=== PATIENT | male | born 1975 | race Caucasian/White ===

== ENCOUNTER 2018-02-21 15:00 | Inpatient (IN) | payer BC ==
[2018-02-21] MEDS ORDERED: methylPREDNISolone Sodium Succinate 125 MG/2 ML SDV IVPUSH ONE (15:18)
[2018-02-21] MEDS: Albuterol/Ipratropium 3.0-0.5 MG/3 ML Neb Soln NEB SCH ×3 (15:28→23:02)
[2018-02-21] MEDS: Lactated Ringers 2,000 ML IV ONE ×2 (15:28→18:22)
[2018-02-21] MEDS: Sodium Chloride 0.9% 10 ML Syringe FLUSH PRN ×2 (15:31→16:18)
[2018-02-21] MEDS ORDERED: Azithromycin 500 MG in Sodium Chloride 0.9% 250 ML IV SCH (16:00)
[2018-02-21 16:08] LABS: CHLORIDE,CL 99 mmol/L (98-107); SODIUM,NA 137 mmol/L (136-145)
[2018-02-21] MEDS: Azithromycin 500 MG in Sodium Chloride 0.9% 250 ML IV SCH (16:15)
[2018-02-21] MEDS: Nicotine 21 MG/24 Hr Patch TRDERM SCH (16:17)
[2018-02-21] MEDS: cefTRIAXone 1 GM Vial IVPUSH SCH (16:18)
[2018-02-21] MEDS: Oseltamivir 75 MG Cap PO SCH (18:05)
[2018-02-21] MEDS ORDERED: Acetaminophen 325 MG Tab PO PRN (19:30)
[2018-02-21] MEDS ORDERED: Ondansetron 4 MG Tab.DIS PO PRN (19:30)
[2018-02-21] MEDS: Lactated Ringers 1,000 ML IV SCH (19:40)
--- NOTE | 2018-02-21 19:46 | PCM.HP ---
H&P History of Present Illness - General Date of Service: 02/21/18 Admit Problem/Dx: Admission Diagnosis/Problem Admission Diagnosis/Problem Sepsis secondary to Community Acquired Pneumonia Influenza B Hypoxia Weakness Source of Information: Patient, Family, Old Records, RN, RN Notes Reviewed History Limitations: Reports: No Limitations - History of Present Illness Initial Comments - Free Text/Narative: This patient was seen and examined by me as an [facility] provider The patient was seen by me in clinic at [facility] earlier today. The patient had presented to the clinic with a one-day history of shortness of breath, weakness, and feeling chilled. In the clinic, the patient had an oxygen saturation of 82% and the chest x-ray showed left lower lobe infiltrate. The patient was therefore directly admitted to the acute care floor at [facility] for further evaluation and treatment. The patient states that his symptoms began sometime yesterday. The patient initially thought he just had a cold and thought he would wait it out. However, today his symptoms became much worse, therefore he felt he needed treatment. The patient denies any chest pain. The patient states he feels short of breath just walking short distances. The patient denies any abdominal pain. The patient has not had any nausea vomiting or diarrhea. The patient denies any focal neurological deficits. The patient states that he has a productive cough reducing a green/yellow appearing purulent sputum. The patient continues to smoke cigarettes on a daily basis. The patient has had some mild dizziness with position changes. The patient states that he has not been drinking very much fluids. Symptom Onset Date: 02/20/18 Chest Pain Score (Numeric/FACES): 6 - Related Data Allergies/Adverse Reactions: Allergies Allergy/AdvReac Type Severity Reaction Status Date / Time No Known Allergies Allergy Verified 02/21/18 15:36 Home Medications: Home Meds . 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 Respiratory History: Reports: Pneumonia, Recurrent, SOB Gastrointestinal History: Reports: Other (See Below) Other Gastrointestinal History: Hernia - Infectious Disease History Infectious Disease History: Reports: Chicken Pox - Past Surgical History GI Surgical History: Reports: Hernia, Abdominal Social & Family History - Family History Family Medical History: Noncontributory - Tobacco Use Smoking Status *Q: Current Every Day Smoker Years of Tobacco use: 25 Packs/Tins Daily: 1 Second Hand Smoke Exposure: Yes - Caffeine Use Caffeine Use: Reports: Coffee, Soda - Recreational Drug Use Recreational Drug Use: No - Living Situation & Occupation Living situation: Reports: , with Spouse Occupation: Employed H&P Review of Systems - Review of Systems: Review Of Systems: See Below General: Reports: Chills, Weakness, Fatigue. Denies: Fever HEENT: Reports: No Symptoms Pulmonary: Reports: Shortness of Breath, Cough, Sputum. Denies: Wheezing Cardiovascular: Denies: Chest Pain, Palpitations Gastrointestinal: Denies: Abdominal Pain, Nausea, Vomiting Skin: Reports: No Symptoms Neurological: Reports: No Symptoms. Denies: Dizziness, Headache Exam - Exam Exam: See Below - Vital Signs Vital Signs: Last Vital Signs Temp 37.0 C 02/21/18 18:09 Pulse 108 H 02/21/18 18:09 Resp 16 02/21/18 18:09 BP 116/65 02/21/18 18:09 Pulse Ox 91 L 02/21/18 18:23 Weight: 132.517 kg - Exam Quality Assessment: Supplemental Oxygen, DVT Prophylaxis General: Alert, Oriented, Cooperative, Mild Distress HEENT: Conjunctiva Clear, TMs Clear, Other (dry mucous membranes) Lungs: Decreased Breath Sounds, Crackles, Rhonchi Cardiovascular: Regular Rate, Regular Rhythm GI/Abdominal Exam: Soft, Non-Tender, Abnormal Bowel Sounds (Hypoactive) Extremities: Normal Inspection Peripheral Pulses: 2+: Radial (L), Radial (R) Skin: Dry, Intact, Cool Neuro Extensive - Mental Status: Alert, Oriented x3 - Patient Data Lab Results Last 24 hrs: Laboratory Results - last 24 hr 02/21/18 02/21/18 02/21/18 Range/Units 15:30 15:30 15:30 WBC 11.5 H (4.0-10.0) x10^3/uL RBC 5.00 (4.5-6.0) x10^6/uL Hgb 16.8 (14.0-18.0) g/dL Hct 50.8 (40.0-52.0) % MCV 101.6 H (78.0-93.0) fL MCH 33.6 H (26.0-32.0) pg MCHC 33.1 (32.0-36.0) g/dL RDW Coeff of Jamie 14.3 (10.0-15.0) % Plt Count 140 (130-400) x10^3/uL Neut % (Auto) 81.1 H (50.0-80.0) % Lymph % (Auto) 6.8 L (25.0-50.0) % [place] % (Auto) 11.8 H (2.0-11.0) % Eos % (Auto) 0.1 (0.0-4.0) % Baso % (Auto) 0.2 (0.2-1.2) % Sodium 137 (136-145) mmol/L Potassium 3.8 (3.5-5.1) mmol/L Chloride 99 (98-107) mmol/L Carbon Dioxide 30 (21-32) mmol/L BUN 10 (7-18) mg/dL Creatinine 1.3 (0.70-1.30) mg/dL Est Cr Clr Drug Dosing 84.51 mL/min Estimated GFR (MDRD) > 60 Glucose 126 H (74-106) mg/dL Lactic Acid 1.5 (0.4-2.0) mmol/L Calcium 8.4 L (8.5-10.1) mg/dL Corrected Calcium 8.88 (8.5-10.1) mg/dL Total Bilirubin 0.8 (0.2-1.0) mg/dL AST 17 (15-37) U/L ALT 31 (16-63) U/L Alkaline Phosphatase 110 (46-116) U/L C-Reactive Protein 10.4 H (<=0.9) mg/dL Total Protein 7.3 (6.4-8.2) g/dL Albumin 3.4 (3.4-5.0) g/dL Globulin 3.9 Albumin/Globulin Ratio 0.87 Result Diagrams: 02/21/18 15:30 02/21/18 15:30 Roberto Results Last 24 hrs: Microbiology 02/21/18 16:29 Influenza Type A Antigen Screen - Final Nasopharyngeal Swab NEGATIVE INFLUENZA A VIRUS AG Influenza Type B Antigen Screen - Final Positive Influenza B Ag *Q Meaningful Use (ADM) - VTE *Q VTE Criteria *Q: Patient is not at risk for falls - Problem List (1) Sepsis due to pneumonia SNOMED Code(s): 85359097 ICD Code: J18.9 - PNEUMONIA, UNSPECIFIED ORGANISM; A41.9 - SEPSIS, UNSPECIFIED ORGANISM Status: Acute Priority: Medium Current Visit: Yes Onset Date: ~02/20/18 (2) Influenza B SNOMED Code(s): 35378500 ICD Code: J10.1 - FLU DUE TO OTH IDENT INFLUENZA VIRUS W OTH RESP MANIFEST Status: Acute Priority: Medium Current Visit: Yes (3) Hypoxia SNOMED Code(s): 581947095 ICD Code: R09.02 - HYPOXEMIA Status: Acute Priority: High Current Visit : Yes (4) Weakness SNOMED Code(s): 90418475 ICD Code: R53.1 - WEAKNESS Status: Acute Priority: Medium Current Visit : Yes Problem List Initiated/Reviewed/Updated: Yes Orders Last 24hrs: Active Orders 24 hr Category Date Time Status Patient Status [ADT] Routine ADT 02/21/18 19:30 Active Height and Weight [RC] UPON Care 02/21/18 19:30 Active Intake and Output [RC] QSHIFT Care 02/21/18 19:31 Active May Shower [RC] ASDIRECTED Care 02/21/18 19:30 Active Oxygen Therapy [RC] 08,20 Care 02/21/18 15:42 Active Pneumonia Education [RC] .PRN Care 02/21/18 15:42 Active RT Aerosol Therapy [RC] 03,07,11,15,19,23 Care 02/21/18 15:16 Active RT Incentive Spirometry [RC] Q2HWA Care 02/21/18 15:42 Active Smoking Cessation Education [RC] .PRN Care 02/21/18 15:45 Active Turn, Cough, Deep Breathe [RC] Q2HWA Care 02/21/18 15:44 Active Up With Assistance [RC] ASDIRECTED Care 02/21/18 19:30 Active VTE/DVT Education [RC] PER UNIT ROUTINE Care 02/21/18 19:30 Active Vital Signs [RC] Q4H Care 02/21/18 19:30 Active Respiratory Care Assess and Treatment [CONS] Routine Cons 02/21/18 19:30 Active Regular Diet [DIET] Diet 02/21/18 Dinner Active Chest 2V [CR] Routine Exams 02/21/18 15:16 Taken BASIC METABOLIC PANEL,BMP [CHEM] Routine Lab 02/22/18 05:11 Ordered CBC WITH AUTO DIFF [HEME] Routine Lab 02/22/18 05:11 Ordered CULTURE BLOOD [BC] Stat Lab 02/21/18 15:30 Received CULTURE BLOOD [BC] Stat Lab 02/21/18 15:38 Received INFLUENZA A+B AG SCREEN [RM] Stat Lab 02/21/18 16:29 Ordered MAGNESIUM [CHEM] Routine Lab 02/22/18 05:11 Ordered UA W/MICROSCOPIC [URIN] Routine Lab 02/21/18 17:54 Ordered Acetaminophen [Tylenol] Med 02/21/18 19:30 Ordered 650 mg PO Q4H PRN Albuterol/Ipratropium [DuoNeb 3.0-0.5 MG/3 ML] Med 02/21/18 16:00 Active 3 ml NEB Q4HRRT Azithromycin [Zithromax] 500 mg Med 02/21/18 15:45 Active Sodium Chloride 0.9% [Normal Saline] 250 ml IV DAILY Lactated Ringers [Ringers, Lactated] 1,000 ml Med 02/21/18 15:30 Active IV ASDIRECTED Nicotine [Habitrol] Med 02/21/18 16:00 Active 21 mg TRDERM DAILY Ondansetron [Zofran ODT] Med 02/21/18 19:30 Ordered 4 mg PO Q6H PRN Oseltamivir [Tamiflu] Med 02/21/18 18:00 Active 75 mg PO BID Sodium Chloride 0.9% [Saline Flush] Med 02/21/18 15:14 Active 10 ml FLUSH ASDIRECTED PRN cefTRIAXone [Rocephin] Med 02/21/18 15:45 Active 1 gm IVPUSH DAILY methylPREDNISolone Sod Succ [Solu-MEDROL] Med 02/22/18 08:00 Ordered 40 mg IVPUSH Q8H Blood Culture x2 Reflex Set [OM.PC] Stat Oth 02/21/18 15:14 Ordered Blood Culture x2 Reflex Set [OM.PC] Stat Oth 02/21/18 15:42 Ordered Peripheral IV Insertion Adult [OM.PC] Routine Oth 02/21/18 15:14 Ordered Code Status [Resuscitation Status] Routine Resus Stat 02/21/18 15:02 Ordered Medication Orders Acetaminophen (Tylenol) 650 mg PO Q4H PRN PRN Reason: Pain (Mild 1-3)/fever Albuterol/Ipratropium (Duoneb 3.0-0.5 Mg/3 Ml) 3 ml NEB Q4HRRT [facility] Last Admin: 02/21/18 18:23 Dose: 3 ml Admin: 02/21/18 15:28 Dose: 3 ml Ceftriaxone Sodium (Rocephin) 1 gm IVPUSH DAILY [facility] Last Admin: 02/21/18 16:18 Dose: 1 gm Lactated Ringer's (Ringers, Lactated) 1,000 mls @ 125 mls/hr IV ASDIRECTED [facility] Last Admin: 02/21/18 19:40 Dose: 125 mls/hr Azithromycin 500 mg/ Sodium (Chloride) 250 mls @ 250 mls/hr IV DAILY [facility] Last Admin: 02/21/18 16:15 Dose: 250 mls/hr Methylprednisolone Sodium Succinate (Solu-Medrol) 40 mg IVPUSH Q8H [facility] Nicotine (Habitrol) 21 mg TRDERM DAILY [facility] Last Admin: 02/21/18 16:17 Dose: 21 mg Ondansetron HCl (Zofran Odt) 4 mg PO Q6H PRN PRN Reason: nausea, able to take PO Oseltamivir Phosphate (Tamiflu) 75 mg PO BID [facility] Last Admin: 02/21/18 18:05 Dose: 75 mg Sodium Chloride (Saline Flush) 10 ml FLUSH ASDIRECTED PRN PRN Reason: Keep Vein Open Last Admin: 02/21/18 16:18 Dose: 10 ml Admin: 02/21/18 15:31 Dose: 10 ml Assessment/Plan Comment:: 42-year-old male patient with a past medical history of recurrent pneumonias is admitted to the acute care floor at [facility] with a diagnosis of sepsis secondary to community acquired pneumonia, influenza Type B, hypoxia, and weakness. The patient will be started on Tamiflu because he is within the 48 hour window of starting this medication. Given the patient's hypoxia and left lower lung infiltrate, I will also start the patient on a azithromycin and Rocephin IV. The patient will be started on DuoNeb's every 4 hours for his shortness of breath and hypoxia. Given the patient's smoking history I will okay with having his oxygen saturations greater than 90%. The patient will be given 2 L of IV fluids, then IV fluids at 125cc/hr. The patient will be given Solu-Medrol IV every 8 hours. Will recheck bloodwork in the AM. Patient is a full code. DVT prophylaxis with Lovenox and early ambulation. The patient does wish to be transferred to a higher level of care should the need arise. I do anticipate the patient will be admitted acutely for >48 given pneumonia, hypoxia , and influenza. Note: This patient was seen and examined by me as an [facility] provider.
[2018-02-22] MEDS: Albuterol/Ipratropium 3.0-0.5 MG/3 ML Neb Soln NEB SCH ×6 (03:22→23:48)
[2018-02-22] MEDS: Lactated Ringers 1,000 ML IV SCH ×3 (04:36→22:10)
[2018-02-22] MEDS: cefTRIAXone 1 GM Vial IVPUSH SCH (07:59)
[2018-02-22] MEDS: Azithromycin 500 MG in Sodium Chloride 0.9% 250 ML IV SCH (07:59)
[2018-02-22] MEDS: Nicotine 21 MG/24 Hr Patch TRDERM SCH (08:00)
[2018-02-22] MEDS: methylPREDNISolone Sodium Succinate 40 MG/1 ML SDV IVPUSH SCH ×3 (08:00→23:48)
[2018-02-22] MEDS: Oseltamivir 75 MG Cap PO SCH ×2 (08:00→19:56)
[2018-02-22 08:36] LABS: CHLORIDE,CL 103 mmol/L (98-107); SODIUM,NA 139 mmol/L (136-145)
--- NOTE | 2018-02-22 11:08 | PCM.PN ---
- General Info Date of Service: 02/22/18 Admission Dx/Problem (Free Text): Admission Diagnosis/Problem Admission Diagnosis/Problem Sepsis secondary to Community Acquired Pneumonia Influenza B Hypoxia Weakness Subjective Update: Patient states he continues to have a productive cough and feeling SOB. He denies any pain. No issues with N/V/D. Tolerating diet ok. Otherwise, he states he is feeling better than yesterday. Functional Status: Reports: Pain Controlled, Tolerating Diet, Ambulating, Urinating Pain Score: 0 - Review of Systems General: Reports: Weakness, Fatigue. Denies: Fever Pulmonary: Reports: Shortness of Breath, Cough, Sputum Cardiovascular: Denies: Chest Pain, Palpitations Gastrointestinal: Denies: Abdominal Pain, Nausea, Vomiting Skin: Reports: No Symptoms Neurological: Reports: No Symptoms. Denies: Dizziness, Headache - Patient Data Vitals - Most Recent: Last Vital Signs Temp 36.9 C 02/22/18 10:00 Pulse 75 02/22/18 10:00 Resp 18 02/22/18 10:00 BP 114/63 02/22/18 10:00 Pulse Ox 91 L 02/22/18 10:00 Weight - Most Recent: 132.517 kg I&O - Last 24 Hours: Intake & Output 02/21/18 02/22/18 02/22/18 22:59 06:59 14:59 Intake Total 2505 3220 300 Output Total 400 1950 Balance 2105 1270 300 Lab Results Last 24 Hours: Laboratory Results - last 24 hr 02/21/18 02/21/18 02/21/18 Range/Units 15:30 15:30 15:30 WBC 11.5 H (4.0-10.0) x10^3/uL RBC 5.00 (4.5-6.0) x10^6/uL Hgb 16.8 (14.0-18.0) g/dL Hct 50.8 (40.0-52.0) % MCV 101.6 H (78.0-93.0) fL MCH 33.6 H (26.0-32.0) pg MCHC 33.1 (32.0-36.0) g/dL RDW Coeff of Jamie 14.3 (10.0-15.0) % Plt Count 140 (130-400) x10^3/uL Neut % (Auto) 81.1 H (50.0-80.0) % Lymph % (Auto) 6.8 L (25.0-50.0) % [place] % (Auto) 11.8 H (2.0-11.0) % Eos % (Auto) 0.1 (0.0-4.0) % Baso % (Auto) 0.2 (0.2-1.2) % Sodium 137 (136-145) mmol/L Potassium 3.8 (3.5-5.1) mmol/L Chloride 99 (98-107) mmol/L Carbon Dioxide 30 (21-32) mmol/L BUN 10 (7-18) mg/dL Creatinine 1.3 (0.70-1.30) mg/dL Est Cr Clr Drug Dosing 84.51 mL/min Estimated GFR (MDRD) > 60 Glucose 126 H (74-106) mg/dL Lactic Acid 1.5 (0.4-2.0) mmol/L Calcium 8.4 L (8.5-10.1) mg/dL Corrected Calcium 8.88 (8.5-10.1) mg/dL Magnesium (1.8-2.4) mg/dL Total Bilirubin 0.8 (0.2-1.0) mg/dL AST 17 (15-37) U/L ALT 31 (16-63) U/L Alkaline Phosphatase 110 (46-116) U/L C-Reactive Protein 10.4 H (<=0.9) mg/dL Total Protein 7.3 (6.4-8.2) g/dL Albumin 3.4 (3.4-5.0) g/dL Globulin 3.9 Albumin/Globulin Ratio 0.87 02/22/18 02/22/18 Range/Units 07:41 07:41 WBC 12.9 H (4.0-10.0) x10^3/uL RBC 4.82 (4.5-6.0) x10^6/uL Hgb 16.3 (14.0-18.0) g/dL Hct 50.2 (40.0-52.0) % MCV 104.1 H (78.0-93.0) fL MCH 33.8 H (26.0-32.0) pg MCHC 32.5 (32.0-36.0) g/dL RDW Coeff of Jamie 14.3 (10.0-15.0) % Plt Count 141 (130-400) x10^3/uL Neut % (Auto) 87.2 H (50.0-80.0) % Lymph % (Auto) 5.0 L (25.0-50.0) % [place] % (Auto) 7.6 (2.0-11.0) % Eos % (Auto) 0.0 (0.0-4.0) % Baso % (Auto) 0.2 (0.2-1.2) % Sodium 139 (136-145) mmol/L Potassium 4.3 (3.5-5.1) mmol/L Chloride 103 (98-107) mmol/L Carbon Dioxide 31 (21-32) mmol/L BUN 14 (7-18) mg/dL Creatinine 1.2 (0.70-1.30) mg/dL Est Cr Clr Drug Dosing 91.55 mL/min Estimated GFR (MDRD) > 60 Glucose 185 H (74-106) mg/dL Lactic Acid (0.4-2.0) mmol/L Calcium 8.5 (8.5-10.1) mg/dL Corrected Calcium (8.5-10.1) mg/dL Magnesium 1.9 (1.8-2.4) mg/dL Total Bilirubin (0.2-1.0) mg/dL AST (15-37) U/L ALT (16-63) U/L Alkaline Phosphatase (46-116) U/L C-Reactive Protein (<=0.9) mg/dL Total Protein (6.4-8.2) g/dL Albumin (3.4-5.0) g/dL Globulin Albumin/Globulin Ratio Roberto Results Last 24 Hours: Microbiology 02/21/18 16:29 Influenza Type A Antigen Screen - Final Nasopharyngeal Swab NEGATIVE INFLUENZA A VIRUS AG Influenza Type B Antigen Screen - Final Positive Influenza B Ag Med Orders - Current: Current Medications Acetaminophen (Tylenol) 650 mg PO Q4H PRN PRN Reason: Pain (Mild 1-3)/fever Albuterol/Ipratropium (Duoneb 3.0-0.5 Mg/3 Ml) 3 ml NEB Q4HRRT [place] Last Admin: 02/22/18 11:01 Dose: 3 ml Ceftriaxone Sodium (Rocephin) 1 gm IVPUSH DAILY [facility] Last Admin: 02/22/18 07:59 Dose: 1 gm Lactated Ringer's (Ringers, Lactated) 1,000 mls @ 125 mls/hr IV ASDIRECTED [facility] Last Admin: 02/22/18 04:36 Dose: 125 mls/hr Azithromycin 500 mg/ Sodium (Chloride) 250 mls @ 250 mls/hr IV DAILY [facility] Last Admin: 02/22/18 07:59 Dose: 250 mls/hr Methylprednisolone Sodium Succinate (Solu-Medrol) 40 mg IVPUSH Q8H [facility] Last Admin: 02/22/18 08:00 Dose: 40 mg Nicotine (Habitrol) 21 mg TRDERM DAILY [facility] Last Admin: 02/22/18 08:00 Dose: 21 mg Ondansetron HCl (Zofran Odt) 4 mg PO Q6H PRN PRN Reason: nausea, able to take PO Oseltamivir Phosphate (Tamiflu) 75 mg PO BID [facility] Last Admin: 02/22/18 08:00 Dose: 75 mg Sodium Chloride (Saline Flush) 10 ml FLUSH ASDIRECTED PRN PRN Reason: Keep Vein Open Last Admin: 02/21/18 16:18 Dose: 10 ml Discontinued Medications Lactated Ringer's (Ringers, Lactated) 2,000 mls @ 999 mls/hr IV ONETIME ONE Stop: 02/21/18 17:15 Last Admin: 02/21/18 18:22 Dose: 999 mls/hr Azithromycin 500 mg/ Sodium (Chloride) 250 mls @ 250 mls/hr IV Q24H [facility] Methylprednisolone Sodium Succinate (Solu-Medrol) 125 mg IVPUSH ONETIME ONE Stop: 02/21/18 15:19 Last Admin: 02/21/18 15:28 Dose: 125 mg - Exam Quality Assessment: Supplemental Oxygen General: Alert, Oriented, Cooperative, No Acute Distress Lungs: Decreased Breath Sounds, Rales, Rhonchi, Wheezing Cardiovascular: Regular Rate, Regular Rhythm GI/Abdominal Exam: Soft, Non-Tender, Abnormal Bowel Sounds (Hypoactive) Peripheral Pulses: 2+: Radial (L), Radial (R) Skin: Warm, Dry, Intact Neurological: No New Focal Deficit - Problem List & Annotations (1) Sepsis due to pneumonia SNOMED Code(s): 46506256 Code(s): J18.9 - PNEUMONIA, UNSPECIFIED ORGANISM; A41.9 - SEPSIS, UNSPECIFIED ORGANISM Status: Acute Priority: Medium Current Visit: Yes Onset Date: ~02/20/18 (2) Influenza B SNOMED Code(s): 70486126 Code(s): J10.1 - FLU DUE TO OTH IDENT INFLUENZA VIRUS W OTH RESP MANIFEST Status: Acute Priority: Medium Current Visit: Yes (3) Hypoxia SNOMED Code(s): 367625921 Code(s): R09.02 - HYPOXEMIA Status: Acute Priority: High Current Visit : Yes (4) Weakness SNOMED Code(s): 63792473 Code(s): R53.1 - WEAKNESS Status: Acute Priority: Medium Current Visit : Yes - Problem List Review Problem List Initiated/Reviewed/Updated: Yes - My Orders Last 24 Hours: My Active Orders 02/21/18 15:02 Code Status [Resuscitation Status] Routine 02/21/18 15:14 Sodium Chloride 0.9% [Saline Flush] 10 ml FLUSH ASDIRECTED PRN Blood Culture x2 Reflex Set [OM.PC] Stat Peripheral IV Insertion Adult [OM.PC] Routine 02/21/18 15:16 RT Aerosol Therapy [RC] 03,07,11,15,19,23 Chest 2V [CR] Routine 02/21/18 15:30 CULTURE BLOOD [BC] Stat Lactated Ringers [Ringers, Lactated] 1,000 ml IV ASDIRECTED 02/21/18 15:38 CULTURE BLOOD [BC] Stat 02/21/18 15:42 Oxygen Therapy [RC] 08,20 Pneumonia Education [RC] .PRN RT Incentive Spirometry [RC] Q2HWA Blood Culture x2 Reflex Set [OM.PC] Stat 02/21/18 15:44 Turn, Cough, Deep Breathe [RC] Q2HWA 02/21/18 15:45 Smoking Cessation Education [RC] .PRN Azithromycin [Zithromax] 500 mg Sodium Chloride 0.9% [Normal Saline] 250 ml IV DAILY cefTRIAXone [Rocephin] 1 gm IVPUSH DAILY 02/21/18 16:00 Albuterol/Ipratropium [DuoNeb 3.0-0.5 MG/3 ML] 3 ml NEB Q4HRRT Nicotine [Habitrol] 21 mg TRDERM DAILY 02/21/18 16:29 INFLUENZA A+B AG SCREEN [RM] Stat 02/21/18 17:54 UA W/MICROSCOPIC [URIN] Routine 02/21/18 18:00 Oseltamivir [Tamiflu] 75 mg PO BID 02/21/18 19:30 Patient Status [ADT] Routine May Shower [RC] ASDIRECTED Up With Assistance [RC] ASDIRECTED VTE/DVT Education [RC] PER UNIT ROUTINE Vital Signs [RC] 06,10,14,18,22,02 Respiratory Care Assess and Treatment [CONS] Routine Acetaminophen [Tylenol] 650 mg PO Q4H PRN Ondansetron [Zofran ODT] 4 mg PO Q6H PRN 02/21/18 19:31 Intake and Output [RC] 02/21/18 Dinner Regular Diet [DIET] 02/22/18 08:00 methylPREDNISolone Sod Succ [Solu-MEDROL] 40 mg IVPUSH Q8H 02/23/18 05:11 BASIC METABOLIC PANEL,BMP [CHEM] Routine CBC WITH AUTO DIFF [HEME] Routine - Assessment Assessment:: Sepsis secondary to Community Acquired Pneumonia Influenza B Hypoxia Weakness - Plan Plan:: 42-year-old male patient with a past medical history of recurrent pneumonias is admitted to the acute care floor at [facility] with a diagnosis of sepsis secondary to community acquired pneumonia, influenza Type B, hypoxia, and weakness. Continue with Tamiflu because he is within the 48 hour window of starting this medication. Given the patient's hypoxia and left lower lung infiltrate, continue with azithromycin and Rocephin IV. Patient will still require DuoNeb's every 4 hours for his shortness of breath and hypoxia. Given the patient's smoking history I will okay with having his oxygen saturations greater than 90%. Continue IV fluids at 125cc/hr. The patient will be given Solu -Medrol IV every 8 hours. Will recheck bloodwork in the AM. Patient is a full code. DVT prophylaxis with Lovenox and early ambulation. The patient does wish to be transferred to a higher level of care should the need arise. I do anticipate the patient will be admitted acutely for >48 given pneumonia, hypoxia , and influenza. Continue with acute cares for now. Note: This patient was seen and examined by me as an [facility] provider.
[2018-02-23] MEDS: Albuterol/Ipratropium 3.0-0.5 MG/3 ML Neb Soln NEB SCH ×6 (03:57→23:26)
[2018-02-23] MEDS: Lactated Ringers 1,000 ML IV SCH (06:12)
[2018-02-23] MEDS: cefTRIAXone 1 GM Vial IVPUSH SCH (07:38)
[2018-02-23] MEDS: Azithromycin 500 MG in Sodium Chloride 0.9% 250 ML IV SCH (07:38)
[2018-02-23] MEDS: Oseltamivir 75 MG Cap PO SCH ×2 (07:39→19:41)
[2018-02-23] MEDS: Nicotine 21 MG/24 Hr Patch TRDERM SCH (07:39)
[2018-02-23] MEDS: methylPREDNISolone Sodium Succinate 40 MG/1 ML SDV IVPUSH SCH ×2 (07:39→19:41)
[2018-02-23 08:24] LABS: CHLORIDE,CL 104 mmol/L (98-107); SODIUM,NA 141 mmol/L (136-145)
--- NOTE | 2018-02-23 10:09 | PCM.PN ---
- General Info Date of Service: 02/23/18 Admission Dx/Problem (Free Text): Admission Diagnosis/Problem Admission Diagnosis/Problem Sepsis secondary to Community Acquired Pneumonia Influenza B Hypoxia Weakness Subjective Update: Patient states he continues to have a productive cough and feeling SOB. He denies any pain. No issues with N/V/D. Tolerating diet ok. Otherwise, he states he is feeling better than yesterday. Feels some anxiety from not smoking. Ambulating independently. Functional Status: Reports: Pain Controlled, Tolerating Diet, Ambulating, Urinating Pain Score: 0 - Review of Systems General: Denies: Fever, Weakness, Fatigue, Chills Pulmonary: Reports: Shortness of Breath, Cough, Sputum, Wheezing Cardiovascular: Denies: Chest Pain, Palpitations Gastrointestinal: Denies: Abdominal Pain, Nausea, Vomiting Skin: Reports: No Symptoms Neurological: Reports: No Symptoms - Patient Data Vitals - Most Recent: Last Vital Signs Temp 36.8 C 02/23/18 06:00 Pulse 76 02/23/18 06:00 Resp 19 02/23/18 06:00 BP 100/57 L 02/23/18 06:00 Pulse Ox 93 L 02/23/18 07:04 Weight - Most Recent: 132.517 kg I&O - Last 24 Hours: Intake & Output 02/22/18 02/23/18 02/23/18 22:59 06:59 14:59 Intake Total 3751 1420 360 Balance 3751 1420 360 Lab Results Last 24 Hours: Laboratory Results - last 24 hr 02/21/18 02/23/18 02/23/18 Range/Units 17:54 07:32 07:32 WBC 15.2 H (4.0-10.0) x10^3/uL RBC 4.64 (4.5-6.0) x10^6/uL Hgb 15.5 (14.0-18.0) g/dL Hct 48.8 (40.0-52.0) % MCV 105.2 H (78.0-93.0) fL MCH 33.4 H (26.0-32.0) pg MCHC 31.8 L (32.0-36.0) g/dL RDW Coeff of Jamie 14.3 (10.0-15.0) % Plt Count 146 (130-400) x10^3/uL Neut % (Auto) 84.3 H (50.0-80.0) % Lymph % (Auto) 6.6 L (25.0-50.0) % Forest % (Auto) 9.0 (2.0-11.0) % Eos % (Auto) 0.0 (0.0-4.0) % Baso % (Auto) 0.1 L (0.2-1.2) % Sodium 141 (136-145) mmol/L Potassium 4.6 (3.5-5.1) mmol/L Chloride 104 (98-107) mmol/L Carbon Dioxide 32 (21-32) mmol/L BUN 19 H (7-18) mg/dL Creatinine 0.9 (0.70-1.30) mg/dL Est Cr Clr Drug Dosing 122.07 mL/min Estimated GFR (MDRD) > 60 Glucose 144 H (74-106) mg/dL Calcium 8.3 L (8.5-10.1) mg/dL NT-Pro-B Natriuret Pep (<=125) pg/mL Urine Color Dark yellow H (YELLOW) Urine Appearance Slightly cloudy H (CLEAR) Urine pH 6.0 (5.0-8.0) Ur Specific [place] 1.020 Urine Protein Trace H (NEGATIVE) mg/dL Urine Glucose (UA) Negative (NEGATIVE) mg/dL Urine Ketones Negative (NEGATIVE) mg/dL Urine Occult Blood Negative (NEGATIVE) Urine Nitrite Negative (NEGATIVE) Urine Bilirubin Negative (NEGATIVE) Urine Urobilinogen 0.2 (0.2) EU/dL Ur Leukocyte Esterase Negative (NEGATIVE) Urine RBC 0-5 (NOT SEEN) /HPF Urine WBC 0-5 (NOT SEEN) /HPF Ur Squamous Epith Cells Not seen (NEGATIVE) /HPF Urine Bacteria Rare (NEGATIVE) /HPF Urine Mucus Not seen (NEGATIVE) /LPF 02/23/18 Range/Units 07:32 WBC (4.0-10.0) x10^3/uL RBC (4.5-6.0) x10^6/uL Hgb (14.0-18.0) g/dL Hct (40.0-52.0) % MCV (78.0-93.0) fL MCH (26.0-32.0) pg MCHC (32.0-36.0) g/dL RDW Coeff of Jamie (10.0-15.0) % Plt Count (130-400) x10^3/uL Neut % (Auto) (50.0-80.0) % Lymph % (Auto) (25.0-50.0) % Forest % (Auto) (2.0-11.0) % Eos % (Auto) (0.0-4.0) % Baso % (Auto) (0.2-1.2) % Sodium (136-145) mmol/L Potassium (3.5-5.1) mmol/L Chloride (98-107) mmol/L Carbon Dioxide (21-32) mmol/L BUN (7-18) mg/dL Creatinine (0.70-1.30) mg/dL Est Cr Clr Drug Dosing mL/min Estimated GFR (MDRD) Glucose (74-106) mg/dL Calcium (8.5-10.1) mg/dL NT-Pro-B Natriuret Pep 208 H (<=125) pg/mL Urine Color (YELLOW) Urine Appearance (CLEAR) Urine pH (5.0-8.0) Ur Specific [place] Urine Protein (NEGATIVE) mg/dL Urine Glucose (UA) (NEGATIVE) mg/dL Urine Ketones (NEGATIVE) mg/dL Urine Occult Blood (NEGATIVE) Urine Nitrite (NEGATIVE) Urine Bilirubin (NEGATIVE) Urine Urobilinogen (0.2) EU/dL Ur Leukocyte Esterase (NEGATIVE) Urine RBC (NOT SEEN) /HPF Urine WBC (NOT SEEN) /HPF Ur Squamous Epith Cells (NEGATIVE) /HPF Urine Bacteria (NEGATIVE) /HPF Urine Mucus (NEGATIVE) /LPF Roberto Results Last 24 Hours: Microbiology 02/21/18 15:38 Aerobic Blood Culture - Preliminary Blood - Venous - Lab Draw NO GROWTH AFTER 1 DAY Anaerobic Blood Culture - Preliminary NO GROWTH AFTER 1 DAY 02/21/18 15:30 Aerobic Blood Culture - Preliminary Blood - Venous NO GROWTH AFTER 1 DAY Anaerobic Blood Culture - Preliminary NO GROWTH AFTER 1 DAY Med Orders - Current: Current Medications Acetaminophen (Tylenol) 650 mg PO Q4H PRN PRN Reason: Pain (Mild 1-3)/fever Albuterol/Ipratropium (Duoneb 3.0-0.5 Mg/3 Ml) 3 ml NEB Q4HRRT [facility] Last Admin: 02/23/18 06:58 Dose: 3 ml Ceftriaxone Sodium (Rocephin) 1 gm IVPUSH DAILY [facility] Last Admin: 02/23/18 07:38 Dose: 1 gm Lactated Ringer's (Ringers, Lactated) 1,000 mls @ 125 mls/hr IV ASDIRECTED [facility] Last Admin: 02/23/18 06:12 Dose: 125 mls/hr Azithromycin 500 mg/ Sodium (Chloride) 250 mls @ 250 mls/hr IV DAILY [facility] Last Admin: 02/23/18 07:38 Dose: 250 mls/hr Methylprednisolone Sodium Succinate (Solu-Medrol) 40 mg IVPUSH Q8H [facility] Last Admin: 02/23/18 07:39 Dose: 40 mg Nicotine (Habitrol) 21 mg TRDERM DAILY [facility] Last Admin: 02/23/18 07:39 Dose: 21 mg Ondansetron HCl (Zofran Odt) 4 mg PO Q6H PRN PRN Reason: nausea, able to take PO Oseltamivir Phosphate (Tamiflu) 75 mg PO BID [facility] Last Admin: 02/23/18 07:39 Dose: 75 mg Sodium Chloride (Saline Flush) 10 ml FLUSH ASDIRECTED PRN PRN Reason: Keep Vein Open Last Admin: 02/21/18 16:18 Dose: 10 ml Discontinued Medications Lactated Ringer's (Ringers, Lactated) 2,000 mls @ 999 mls/hr IV ONETIME ONE Stop: 02/21/18 17:15 Last Admin: 02/21/18 18:22 Dose: 999 mls/hr Azithromycin 500 mg/ Sodium (Chloride) 250 mls @ 250 mls/hr IV Q24H [facility] Methylprednisolone Sodium Succinate (Solu-Medrol) 125 mg IVPUSH ONETIME ONE Stop: 02/21/18 15:19 Last Admin: 02/21/18 15:28 Dose: 125 mg - Exam Quality Assessment: Supplemental Oxygen, DVT Prophylaxis General: Alert, Oriented, Cooperative, No Acute Distress Lungs: Decreased Breath Sounds, Rhonchi, Wheezing Cardiovascular: Regular Rate, Regular Rhythm GI/Abdominal Exam: Normal Bowel Sounds, Soft, Non-Tender Extremities: Pedal Edema (+2 bilateral) Peripheral Pulses: 2+: Radial (L), Radial (R) Skin: Warm, Dry, Intact Neurological: No New Focal Deficit - Problem List & Annotations (1) Sepsis due to pneumonia SNOMED Code(s): 47967656 Code(s): J18.9 - PNEUMONIA, UNSPECIFIED ORGANISM; A41.9 - SEPSIS, UNSPECIFIED ORGANISM Status: Acute Priority: Medium Current Visit: Yes Onset Date: ~02/20/18 (2) Influenza B SNOMED Code(s): 28608427 Code(s): J10.1 - FLU DUE TO OTH IDENT INFLUENZA VIRUS W OTH RESP MANIFEST Status: Acute Priority: Medium Current Visit: Yes (3) Hypoxia SNOMED Code(s): 638272106 Code(s): R09.02 - HYPOXEMIA Status: Acute Priority: High Current Visit : Yes (4) Weakness SNOMED Code(s): 86650510 Code(s): R53.1 - WEAKNESS Status: Acute Priority: Medium Current Visit : Yes - Problem List Review Problem List Initiated/Reviewed/Updated: Yes - My Orders Last 24 Hours: My Active Orders 02/22/18 11:18 Ambulate [RC] Q2HWA 02/23/18 10:01 Chest 2V [CR] Routine 02/24/18 05:11 BASIC METABOLIC PANEL,BMP [CHEM] Routine CBC WITH AUTO DIFF [HEME] Routine - Assessment Assessment:: Sepsis secondary to Community Acquired Pneumonia Influenza B Hypoxia Weakness - Plan Plan:: 42-year-old male patient with a past medical history of recurrent pneumonias is admitted to the acute care floor at [facility] with a diagnosis of sepsis secondary to community acquired pneumonia, influenza Type B, hypoxia, and weakness. Continue Tamiflu for the full coarse. Given the patient's hypoxia and left lower lung infiltrate, continue with azithromycin and Rocephin IV. Continue DuoNeb's every 4 hours for his shortness of breath and hypoxia. Given the patient's smoking history I will okay with having his oxygen saturations greater than 90%. Stop IVF as patient is tolerating PO fluids well. The patient will be given Solu-Medrol IV every 8 hours. Will recheck bloodwork in the AM. Patient is a full code. DVT prophylaxis with Lovenox and early ambulation. The patient does wish to be transferred to a higher level of care should the need arise. I do anticipate the patient will be admitted acutely for >48 given pneumonia, hypoxia, and influenza. Continue with acute cares for now. BNP is elevated today, will hold IVF and recheck CXR today, may consider Lasix if necessary. Lasix may help with increasing O2 sats, patient also has some pedal edema. Recommend outpatient Echo as some point. Patient continues to need oxygen at 4L. I hope over the next day or so we will be able to wean this off. Increased WBC's today secondary to steroids, patient is on Rocephin and Azithromycin and has been afebrile. Note: This patient was seen and examined by me as an [facility] provider.
[2018-02-24] MEDS: Albuterol/Ipratropium 3.0-0.5 MG/3 ML Neb Soln NEB SCH ×6 (02:46→22:03)
[2018-02-24 07:17] LABS: CHLORIDE,CL 104 mmol/L (98-107); SODIUM,NA 140 mmol/L (136-145)
[2018-02-24] MEDS: Nicotine 21 MG/24 Hr Patch TRDERM SCH (07:58)
[2018-02-24] MEDS: methylPREDNISolone Sodium Succinate 40 MG/1 ML SDV IVPUSH SCH (07:58)
[2018-02-24] MEDS: cefTRIAXone 1 GM Vial IVPUSH SCH (07:58)
[2018-02-24] MEDS: Azithromycin 500 MG in Sodium Chloride 0.9% 250 ML IV SCH (07:58)
[2018-02-24] MEDS: Oseltamivir 75 MG Cap PO SCH ×2 (07:59→19:53)
--- NOTE | 2018-02-24 11:21 | PCM.PN ---
- General Info Date of Service: 02/24/18 Admission Dx/Problem (Free Text): Admission Diagnosis/Problem Admission Diagnosis/Problem Sepsis secondary to Community Acquired Pneumonia Influenza B Hypoxia Weakness Subjective Update: Patient states he continues to have a productive cough and feeling SOB. He denies any pain. No issues with N/V/D. Tolerating diet ok. Otherwise, he states he is feeling better. Feels some anxiety from not smoking. Ambulating independently. He is very concerned about missing work. He voices concerns about going back to work tomorrow. Functional Status: Reports: Pain Controlled, Tolerating Diet, Ambulating, Urinating Pain Score: 0 - Review of Systems General: Denies: Fever, Weakness Pulmonary: Reports: Shortness of Breath, Cough, Sputum, Other Cardiovascular: Denies: Chest Pain, Palpitations Gastrointestinal: Denies: Abdominal Pain, Nausea, Vomiting Skin: Reports: No Symptoms Neurological: Reports: No Symptoms - Patient Data Vitals - Most Recent: Last Vital Signs Temp 36.6 C 02/24/18 10:00 Pulse 98 02/24/18 10:00 Resp 18 02/24/18 10:00 BP 122/75 02/24/18 10:00 Pulse Ox 95 02/24/18 10:00 Weight - Most Recent: 132.517 kg I&O - Last 24 Hours: Intake & Output 02/23/18 02/24/18 02/24/18 22:59 06:59 14:59 Intake Total 2183 1200 540 Output Total 1720 Balance 2183 -520 540 Lab Results Last 24 Hours: Laboratory Results - last 24 hr 02/24/18 02/24/18 Range/Units 06:47 06:47 WBC 14.4 H (4.0-10.0) x10^3/uL RBC 4.52 (4.5-6.0) x10^6/uL Hgb 15.2 (14.0-18.0) g/dL Hct 47.8 (40.0-52.0) % MCV 105.8 H (78.0-93.0) fL MCH 33.6 H (26.0-32.0) pg MCHC 31.8 L (32.0-36.0) g/dL RDW Coeff of Jamie 14.2 (10.0-15.0) % Plt Count 158 (130-400) x10^3/uL Neut % (Auto) 80.9 H (50.0-80.0) % Lymph % (Auto) 9.5 L (25.0-50.0) % Roberts % (Auto) 9.5 (2.0-11.0) % Eos % (Auto) 0.0 (0.0-4.0) % Baso % (Auto) 0.1 L (0.2-1.2) % Sodium 140 (136-145) mmol/L Potassium 4.6 (3.5-5.1) mmol/L Chloride 104 (98-107) mmol/L Carbon Dioxide 32 (21-32) mmol/L BUN 17 (7-18) mg/dL Creatinine 0.9 (0.70-1.30) mg/dL Est Cr Clr Drug Dosing 122.07 mL/min Estimated GFR (MDRD) > 60 Glucose 118 H (74-106) mg/dL Calcium 8.4 L (8.5-10.1) mg/dL Roberto Results Last 24 Hours: Microbiology 02/21/18 15:38 Aerobic Blood Culture - Preliminary Blood - Venous - Lab Draw NO GROWTH AFTER 2 DAYS Anaerobic Blood Culture - Preliminary NO GROWTH AFTER 2 DAYS 02/21/18 15:30 Aerobic Blood Culture - Preliminary Blood - Venous NO GROWTH AFTER 2 DAYS Anaerobic Blood Culture - Preliminary NO GROWTH AFTER 2 DAYS Med Orders - Current: Current Medications Acetaminophen (Tylenol) 650 mg PO Q4H PRN PRN Reason: Pain (Mild 1-3)/fever Albuterol/Ipratropium (Duoneb 3.0-0.5 Mg/3 Ml) 3 ml NEB Q4HRRT [facility] Last Admin: 02/24/18 10:47 Dose: 3 ml Ceftriaxone Sodium (Rocephin) 1 gm IVPUSH DAILY [facility] Last Admin: 02/24/18 07:58 Dose: 1 gm Azithromycin 500 mg/ Sodium (Chloride) 250 mls @ 250 mls/hr IV DAILY [facility] Last Admin: 02/24/18 07:58 Dose: 250 mls/hr Methylprednisolone Sodium Succinate (Solu-Medrol) 40 mg IVPUSH Q12H [facility] Last Admin: 02/24/18 07:58 Dose: 40 mg Nicotine (Habitrol) 21 mg TRDERM DAILY [facility] Last Admin: 02/24/18 07:58 Dose: 21 mg Ondansetron HCl (Zofran Odt) 4 mg PO Q6H PRN PRN Reason: nausea, able to take PO Oseltamivir Phosphate (Tamiflu) 75 mg PO BID [facility] Last Admin: 02/24/18 07:59 Dose: 75 mg Sodium Chloride (Saline Flush) 10 ml FLUSH ASDIRECTED PRN PRN Reason: Keep Vein Open Last Admin: 02/21/18 16:18 Dose: 10 ml Discontinued Medications Lactated Ringer's (Ringers, Lactated) 2,000 mls @ 999 mls/hr IV ONETIME ONE Stop: 02/21/18 17:15 Last Admin: 02/21/18 18:22 Dose: 999 mls/hr Lactated Ringer's (Ringers, Lactated) 1,000 mls @ 125 mls/hr IV ASDIRECTED [facility] Last Admin: 02/23/18 06:12 Dose: 125 mls/hr Azithromycin 500 mg/ Sodium (Chloride) 250 mls @ 250 mls/hr IV Q24H [facility] Methylprednisolone Sodium Succinate (Solu-Medrol) 125 mg IVPUSH ONETIME ONE Stop: 02/21/18 15:19 Last Admin: 02/21/18 15:28 Dose: 125 mg Methylprednisolone Sodium Succinate (Solu-Medrol) 40 mg IVPUSH Q8H [facility] Last Admin: 02/23/18 07:39 Dose: 40 mg - Exam Quality Assessment: Supplemental Oxygen, DVT Prophylaxis General: Alert, Oriented, Cooperative, No Acute Distress Neck: Supple Lungs: Normal Respiratory Effort, Decreased Breath Sounds, Rhonchi Cardiovascular: Regular Rate, Regular Rhythm GI/Abdominal Exam: Normal Bowel Sounds, Soft, Non-Tender Peripheral Pulses: 2+: Radial (L), Radial (R) Skin: Warm, Dry, Intact Neurological: No New Focal Deficit - Problem List & Annotations (1) Sepsis due to pneumonia SNOMED Code(s): 40298097 Code(s): J18.9 - PNEUMONIA, UNSPECIFIED ORGANISM; A41.9 - SEPSIS, UNSPECIFIED ORGANISM Status: Acute Priority: Medium Current Visit: Yes Onset Date: ~02/20/18 (2) Influenza B SNOMED Code(s): 69432975 Code(s): J10.1 - FLU DUE TO OTH IDENT INFLUENZA VIRUS W OTH RESP MANIFEST Status: Acute Priority: Medium Current Visit: Yes (3) Hypoxia SNOMED Code(s): 506026784 Code(s): R09.02 - HYPOXEMIA Status: Acute Priority: High Current Visit : Yes (4) Weakness SNOMED Code(s): 44698587 Code(s): R53.1 - WEAKNESS Status: Acute Priority: Medium Current Visit : Yes - Problem List Review Problem List Initiated/Reviewed/Updated: Yes - My Orders Last 24 Hours: My Active Orders 02/23/18 20:00 methylPREDNISolone Sod Succ [Solu-MEDROL] 40 mg IVPUSH Q12H 02/23/18 20:43 Overnight Pulse Oximetry [Overnight Pulse Oximetry] [RC] Click to Edit 02/24/18 10:42 DD [D-DIMER QUANTITATIVE] [COAG] Routine 02/24/18 10:51 RESPIRATORY PANEL BY PCR [MREF] Stat 02/24/18 10:54 Chest w Cont [CT] Routine 02/25/18 05:11 BASIC METABOLIC PANEL,BMP [CHEM] Routine CBC WITH AUTO DIFF [HEME] Routine - Assessment Assessment:: Sepsis secondary to Community Acquired Pneumonia Influenza B Hypoxia Weakness - Plan Plan:: 42-year-old male patient with a past medical history of recurrent pneumonias is admitted to the acute care floor at [facility] with a diagnosis of sepsis secondary to community acquired pneumonia, influenza Type B, hypoxia, and weakness. Continue Tamiflu for the full coarse. Given the patient's hypoxia and left lower lung infiltrate, continue with azithromycin and Rocephin IV. Continue DuoNeb's every 4 hours for his shortness of breath and hypoxia. Given the patient's smoking history I will okay with having his oxygen saturations greater than 90%. Tolerating PO fluids ok. The patient will be given Solu- Medrol IV every 24 hours. Will recheck bloodwork in the AM. Patient is a full code. DVT prophylaxis with Lovenox and early ambulation. The patient does wish to be transferred to a higher level of care should the need arise. Oxygen sats are still low when off oxygen. Over night saturation study shows lows sats in the 80's when off oxygen. Oxygen also low when ambulating even with oxygen on. Check CT of Chest with contrast today to r/o any other pulmonary pathology. Check D-Dimer today. Will do a nasopharyngeal swab for viral respiratory panel to check of any other pathology. Will change Solu- Medrol to daily. Patient will definitely needs sleep study when out of the hospital doing well. Patient is very concerned about being in the hospital for so long. He is concerned about not being at work and getting his bills paid. I explained to the patient he needs to be off the oxygen to be discharge home. It may be a possibility patient's goes home on O2 but compliance may be an issue. Discussed with patient that if his oxygen sats remain low for long periods of time, he could have cardiac ischemia and anoxic brain injuries. Patient verbalized understanding but he is very adamant about going home tomorrow. Note: This patient was seen and examined by me as an [facility] provider.
[2018-02-24] MEDS ORDERED: Iopamidol 612 MG/ML 100 ML Bottle IVPUSH ONE (13:50)
[2018-02-24] MEDS: Sodium Chloride 0.9% 10 ML Syringe FLUSH PRN (21:57)
[2018-02-25] MEDS: Albuterol/Ipratropium 3.0-0.5 MG/3 ML Neb Soln NEB SCH ×3 (02:18→11:24)
[2018-02-25] MEDS: Sodium Chloride 0.9% 10 ML Syringe FLUSH PRN (07:19)
[2018-02-25] MEDS: cefTRIAXone 1 GM Vial IVPUSH SCH (07:19)
[2018-02-25] MEDS: Nicotine 21 MG/24 Hr Patch TRDERM SCH (07:22)
[2018-02-25 07:23] LABS: CHLORIDE,CL 103 mmol/L (98-107); SODIUM,NA 142 mmol/L (136-145)
[2018-02-25] MEDS: Oseltamivir 75 MG Cap PO SCH (07:23)
[2018-02-25] MEDS: Azithromycin 500 MG in Sodium Chloride 0.9% 250 ML IV SCH (07:24)
[2018-02-25] MEDS ORDERED: methylPREDNISolone Sodium Succinate 40 MG/1 ML SDV IVPUSH SCH (08:00)
--- NOTE | 2018-02-25 11:10 | PCM.DCSUM1 ---
Discharge Summary - Hospital Course HPI Initial Comments: The patient was seen by me in clinic at [facility] on SaturdayFebruary 21. The patient had presented to the clinic with a one-day history of shortness of breath, weakness, and feeling chilled. In the clinic, the patient had an oxygen saturation of 82% and the chest x-ray showed left lower lobe infiltrate. The patient was therefore directly admitted to the acute care floor at [facility] for further evaluation and treatment. The patient states that his symptoms began sometime last . The patient initially thought he just had a cold and thought he would wait it out. However, last Saturday his symptoms became much worse, therefore he felt he needed treatment. The patient denies any chest pain. The patient states he feels short of breath just walking short distances. The patient denies any abdominal pain. The patient has not had any nausea vomiting or diarrhea. The patient denies any focal neurological deficits. The patient states that he has a productive cough reducing a green/yellow appearing purulent sputum. The patient continues to smoke cigarettes on a daily basis. The patient has had some mild dizziness with position changes. The patient states that he has not been drinking very much fluids. - Discharge Data Discharge Date: 02/25/18 Discharge Disposition: Home, Self-Care 01 Condition: Good - Discharge Diagnosis/Problem(s) (1) Sepsis due to pneumonia SNOMED Code(s): 19572688 ICD Code: J18.9 - PNEUMONIA, UNSPECIFIED ORGANISM; A41.9 - SEPSIS, UNSPECIFIED ORGANISM Status: Acute Priority: Medium Current Visit: Yes Onset Date: ~02/20/18 (2) Influenza B SNOMED Code(s): 02114042 ICD Code: J10.1 - FLU DUE TO OTH IDENT INFLUENZA VIRUS W OTH RESP MANIFEST Status: Resolved Priority: Medium Current Visit: Yes (3) Hypoxia SNOMED Code(s): 422125715 ICD Code: R09.02 - HYPOXEMIA Status: Resolved Priority: High Current Visit: Yes (4) Weakness SNOMED Code(s): 82541050 ICD Code: R53.1 - WEAKNESS Status: Resolved Priority: Medium Current Visit: Yes - Patient Summary/Data Operative Procedure(s) Performed: None Consults: Consultations 02/21/18 19:30 Respiratory Care Assess and Treatment [CONS] Routine Labs Pending at D/C: None Recommended Follow-up Testing/Procedures: Repeat chest xray in one week Planned Operative Procedure(s) after DC: None Hospital Course: Patient was started on abx IV and PO Tamiflu. Patient was volume resuscitated with IVF. He was given DuoNebs every 4 hours around the clock for 4 days due to hypoxia. Patient had a harsh, non-productive cough. He had no issues with BM's or urination. Over the last three days, the patient required 4L of oxygen to keep saturations above 90%. Patient was able to be weaned off oxygen last evening. CT of chest completed and showed upper and lower left lung pneumonia with diffused emphysema. No PE. Blood work remained stable. Patient initially had issues with anxiety from nicotine withdrawal. Patient was much better at time of discharge. - Patient Instructions Diet: Heart Healthy Diet Activity: No Strenuous Activities, Rest and Relax Today Driving: Do Not Drive (for today) Showering/Bathing: March Shower Notify Provider of: Fever, Increased Pain, Nausea and/or Vomiting - Discharge Plan Prescriptions/Med Rec: Albuterol [Ventolin HFA] 2 puff INH Q4H PRN #1 inhaler PRN Reason: Shortness Of Breath Doxycycline [Vibramycin] 1 cap PO BID 7 Days #14 cap methylPREDNISolone [Medrol] 4 mg PO ASDIRECTED #1 dosepk Oseltamivir [Tamiflu] 1 cap PO BID #3 cap Home Medications: Home Meds Albuterol [Ventolin HFA] 2 puff INH Q4H PRN #1 inhaler 02/25/18 [Rx] Doxycycline [Vibramycin] 1 cap PO BID 7 Days #14 cap 02/25/18 [Rx] Oseltamivir [Tamiflu] 1 cap PO BID #3 cap 02/25/18 [Rx] methylPREDNISolone [Medrol] 4 mg PO ASDIRECTED #1 dosepk 02/25/18 [Rx] Patient Handouts: Steps to Quit Smoking, [id number], Community-Acquired Pneumonia, Adult, [id number], Influenza, Adult Referrals: Brian Mcfadden NP [Nurse Practitioner] - 03/03/18 10:00 am (Follow up appointment) - Discharge Summary/Plan Comment DC Time >30 min.: Yes Discharge Summary/Plan Comment: Patient will be discharged home today. Will continue patient on antibiotic treatment to complete the full coarse. Patient needs to STOP smoking. Patient will need a sleep study outpatient. He may need home oxygen. A follow up CT of the Chest is recommended in 6 months to re-eval lung nodules. Patient needs to rest and relax today. May return to work as he feels able. Patient will follow up with me in one week at the [facility] on March 03. Note: Patient was seen and examined by me as an [facility] provider - General Info Date of Service: 02/25/18 Admission Dx/Problem (Free Text: Admission Diagnosis/Problem Admission Diagnosis/Problem Sepsis secondary to Community Acquired Pneumonia Influenza B Hypoxia Weakness Subjective Update: Patient states his SOB is much improved. No chest pain. He is tolerating diet ok. No issues with BM's or urination. Afebrile. Functional Status: Reports: Pain Controlled, Tolerating Diet, Ambulating, Urinating Numeric/FACES Score: 0 - Review of Systems General: Reports: Weakness. Denies: Fever, Fatigue Pulmonary: Reports: Cough. Denies: Shortness of Breath, Sputum Cardiovascular: Denies: Chest Pain, Palpitations Gastrointestinal: Denies: Abdominal Pain, Nausea, Vomiting Skin: Reports: No Symptoms. Denies: Rash Neurological: Reports: No Symptoms. Denies: Dizziness, Headache - Patient Data Vitals - Most Recent: Last Vital Signs Temp 36.6 C 02/25/18 09:31 Pulse 96 02/25/18 09:31 Resp 20 02/25/18 09:31 BP 120/71 02/25/18 09:31 Pulse Ox 93 L 02/25/18 09:31 Weight - Most Recent: 132.517 kg I&O - Last 24 hours: Intake & Output 02/24/18 02/25/18 02/25/18 22:59 06:59 14:59 Intake Total 300 450 120 Balance 300 450 120 Lab Results - Last 24 hrs: Laboratory Results - last 24 hr 02/24/18 02/25/18 02/25/18 Range/Units 11:13 06:45 06:45 WBC 10.9 H (4.0-10.0) x10^3/uL RBC 4.70 (4.5-6.0) x10^6/uL Hgb 15.8 (14.0-18.0) g/dL Hct 49.1 (40.0-52.0) % MCV 104.5 H (78.0-93.0) fL MCH 33.6 H (26.0-32.0) pg MCHC 32.2 (32.0-36.0) g/dL RDW Coeff of Jamie 14.1 (10.0-15.0) % Plt Count 157 (130-400) x10^3/uL Add Manual Diff Yes Neutrophils % (Manual) 66 (50-80) % Band Neutrophils % 8 H (0-6) % Lymphocytes % (Manual) 20 L (25-50) % Monocytes % (Manual) 4 (2-11) % Eosinophils % (Manual) 2 (0-4) % Platelet Estimate Adequate D-Dimer, Quantitative 0.47 (<=0.58) mg/LFEU Sodium 142 (136-145) mmol/L Potassium 3.8 (3.5-5.1) mmol/L Chloride 103 (98-107) mmol/L Carbon Dioxide 33 H (21-32) mmol/L BUN 16 (7-18) mg/dL Creatinine 1.0 (0.70-1.30) mg/dL Est Cr Clr Drug Dosing 109.86 mL/min Estimated GFR (MDRD) > 60 Glucose 82 (74-106) mg/dL Calcium 8.2 L (8.5-10.1) mg/dL FROILAN Results - Last 24 hrs: Microbiology 02/24/18 10:55 Respiratory Virus Panel (PCR) - Final Nasopharyngeal Swab 02/21/18 15:38 Aerobic Blood Culture - Preliminary Blood - Venous - Lab Draw NO GROWTH AFTER 3 DAYS Anaerobic Blood Culture - Preliminary NO GROWTH AFTER 3 DAYS 02/21/18 15:30 Aerobic Blood Culture - Preliminary Blood - Venous NO GROWTH AFTER 3 DAYS Anaerobic Blood Culture - Preliminary NO GROWTH AFTER 3 DAYS Med Orders - Current: Current Medications Acetaminophen (Tylenol) 650 mg PO Q4H PRN PRN Reason: Pain (Mild 1-3)/fever Albuterol/Ipratropium (Duoneb 3.0-0.5 Mg/3 Ml) 3 ml NEB Q4HRRT [facility] Last Admin: 02/25/18 07:11 Dose: 3 ml Ceftriaxone Sodium (Rocephin) 1 gm IVPUSH DAILY [facility] Last Admin: 02/25/18 07:19 Dose: 1 gm Azithromycin 500 mg/ Sodium (Chloride) 250 mls @ 250 mls/hr IV DAILY [facility] Last Admin: 02/25/18 07:24 Dose: 250 mls/hr Methylprednisolone Sodium Succinate (Solu-Medrol) 40 mg IVPUSH DAILY [facility] Last Admin: 02/25/18 07:19 Dose: 40 mg Nicotine (Habitrol) 21 mg TRDERM DAILY [facility] Last Admin: 02/25/18 07:22 Dose: 21 mg Ondansetron HCl (Zofran Odt) 4 mg PO Q6H PRN PRN Reason: nausea, able to take PO Oseltamivir Phosphate (Tamiflu) 75 mg PO BID [facility] Last Admin: 02/25/18 07:23 Dose: 75 mg Sodium Chloride (Saline Flush) 10 ml FLUSH ASDIRECTED PRN PRN Reason: Keep Vein Open Last Admin: 02/25/18 07:19 Dose: 10 ml Discontinued Medications Lactated Ringer's (Ringers, Lactated) 2,000 mls @ 999 mls/hr IV ONETIME ONE Stop: 02/21/18 17:15 Last Admin: 02/21/18 18:22 Dose: 999 mls/hr Lactated Ringer's (Ringers, Lactated) 1,000 mls @ 125 mls/hr IV ASDIRECTED [facility] Last Admin: 02/23/18 06:12 Dose: 125 mls/hr Azithromycin 500 mg/ Sodium (Chloride) 250 mls @ 250 mls/hr IV Q24H [facility] Iopamidol (Isovue-300 (61%)) 100 ml IVPUSH ONETIME ONE Stop: 02/24/18 13:51 Last Admin: 02/24/18 14:31 Dose: 100 ml Methylprednisolone Sodium Succinate (Solu-Medrol) 125 mg IVPUSH ONETIME ONE Stop: 02/21/18 15:19 Last Admin: 02/21/18 15:28 Dose: 125 mg Methylprednisolone Sodium Succinate (Solu-Medrol) 40 mg IVPUSH Q8H [facility] Last Admin: 02/23/18 07:39 Dose: 40 mg Methylprednisolone Sodium Succinate (Solu-Medrol) 40 mg IVPUSH Q12H [facility] Last Admin: 02/24/18 07:58 Dose: 40 mg - Exam General: Reports: Alert, Oriented, Cooperative, No Acute Distress Neck: Reports: Supple Lungs: Reports: Clear to Auscultation, Normal Respiratory Effort, Decreased Breath Sounds Cardiovascular: Reports: Regular Rate, Regular Rhythm GI/Abdominal Exam: Normal Bowel Sounds, Soft, Non-Tender Skin: Reports: Warm, Dry, Intact Neurological: Reports: No New Focal Deficit *Q Meaningful Use (DIS) - VTE *Q VTE Criteria *Q: Patient is not at risk for falls at time of this discharge
== END 2018-02-25 12:03 | disposition home or self-care (01) | DRG 720 ==
LOC: VM.MS 15:01
PROVIDERS: ADMIT Nurse Practitioner Family; ATTEND Nurse Practitioner Family
DX: A41.9 Sepsis, unspecified organism (principal); J10.00 Influenza due to other identified influenza virus with unspecified type of pneumonia; R09.02 Hypoxemia; R53.1 Weakness; H91.90 Unspecified hearing loss, unspecified ear; H91.92 Unspecified hearing loss, left ear; R42 Dizziness and giddiness; F17.213 Nicotine dependence, cigarettes, with withdrawal; Z87.01 Personal history of pneumonia (recurrent)
CPT/HCPCS: 36415; 71046; 71260; 80048; 80053; 81001; 83605; 83735; 83880; 85025; 85379; 86140; 87040; 87486; 87581; 87633; 87798; 87804; 94640; 94760; A9270-GY; J0456; J0696; J2920; J2930; J7050; J7120; Q9967

== ENCOUNTER 2019-01-14 15:41 | Inpatient (IN) | payer BC ==
[2019-01-14] MEDS ORDERED: Sodium Chloride 0.9% 10 ML Syringe FLUSH PRN ×2 (16:08)
[2019-01-14] MEDS ORDERED: Sodium Chloride 0.9% 1,000 ML IV ONE (16:11)
[2019-01-14] MEDS ORDERED: Acetaminophen 325 MG Tab PO PRN (16:15)
[2019-01-14] MEDS ORDERED: Zolpidem 5 MG Tab PO PRN (16:15)
[2019-01-14] MEDS ORDERED: Polyethylene Glycol 3350 Powder 17 GM Packet PO PRN (16:15)
[2019-01-14] MEDS ORDERED: Ondansetron 4 MG Tab.DIS PO PRN (16:15)
[2019-01-14] MEDS ORDERED: Albuterol/Ipratropium 3.0-0.5 MG/3 ML Neb Soln NEB SCH (16:15)
[2019-01-14] MEDS ORDERED: Docusate Sodium 100 MG Cap PO PRN (16:15)
--- NOTE | 2019-01-14 16:27 | PCM.HP ---
H&P History of Present Illness - General Date of Service: 01/14/19 Admit Problem/Dx: Admission Diagnosis/Problem Admission Diagnosis/Problem Pneumonia Hypoxia Dehydration SOB Source of Information: Patient, Family, Old Records, RN, RN Notes Reviewed History Limitations: Reports: No Limitations - History of Present Illness Initial Comments - Free Text/Narative: Patient presents to the [facility] earlier today with complaints of SOB, dry cough, fevers, and chills. Appetite has been poor. Patient states symptoms have been occurring for the past day or so. He has a long stand history of heavy cigarette smoking. Patient states he has been using OTC cough syrup but nothing else. No eye or ear symptoms. No sinus pressure/pain. He is trying to stay hydrated but knows he needs to drink more. Fevers have been 103 at home. No chest pain. No abdominal complaints. Urine output has dropped off some. No focal neurological problems. Symptom Onset Date: 01/13/19 - Related Data Allergies/Adverse Reactions: Allergies Allergy/AdvReac Type Severity Reaction Status Date / Time No Known Allergies Allergy Verified 02/21/18 15:36 Home Medications: Home Meds . 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 Respiratory History: Reports: Pneumonia, Recurrent, SOB Gastrointestinal History: Reports: Other (See Below) Other Gastrointestinal History: Hernia - Infectious Disease History Infectious Disease History: Reports: Chicken Pox - Past Surgical History GI Surgical History: Reports: Hernia, Abdominal Social & Family History - Family History Family Medical History: Noncontributory - Caffeine Use Caffeine Use: Reports: Coffee, Soda - Living Situation & Occupation Living situation: Reports: , with Spouse Occupation: Employed H&P Review of Systems - Review of Systems: Review Of Systems: See Below General: Reports: Fever, Chills, Weakness, Fatigue, Night Sweats, Decreased Appetite HEENT: Reports: Headaches. Denies: Ear Pain, Eye Pain, Post Nasal Drip, Sinus Congestion, Sore Throat Pulmonary: Reports: Shortness of Breath, Wheezing, Cough. Denies: Sputum Cardiovascular: Reports: Dyspnea on Exertion, Lightheadedness. Denies: Chest Pain Gastrointestinal: Denies: Abdominal Pain, Nausea, Vomiting Skin: Reports: Cyanosis Neurological: Reports: No Symptoms Exam - Exam Exam: See Below - Exam General: Alert, Oriented, Cooperative HEENT: Nares Patent, TMs Clear, Rhinitis Neck: Supple Lungs: Decreased Breath Sounds, Crackles, Rhonchi, Wheezing Cardiovascular: Irregular Rhythm, Tachycardia GI/Abdominal Exam: Soft, Non-Tender, Abnormal Bowel Sounds (Hypoactive) Extremities: Pallor Peripheral Pulses: 2+: Radial (L), Radial (R) Skin: Dry, Intact, Cool Neuro Extensive - Mental Status: Alert, Oriented x3 *Q Meaningful Use (ADM) - VTE *Q VTE Mechanical Contraindications *Q: At Risk for Falls - Problem List (1) CAP (community acquired pneumonia) SNOMED Code(s): 073095607 ICD Code: J18.9 - PNEUMONIA, UNSPECIFIED ORGANISM Status: Acute Priority : High Current Visit: Yes Qualifiers: Laterality: right Lung location: middle lobe of lung Qualified Code(s): J18.1 - Lobar pneumonia, unspecified organism (2) Dehydration SNOMED Code(s): 13177283 ICD Code: E86.0 - DEHYDRATION Status: Acute Priority: Medium Current Visit: Yes (3) Shortness of breath SNOMED Code(s): 849404959 ICD Code: R06.02 - SHORTNESS OF BREATH Status: Acute Priority: High Current Visit: Yes (4) Hypoxia SNOMED Code(s): 100892250 ICD Code: R09.02 - HYPOXEMIA Status: Resolved Priority: High Current Visit: Yes (5) Weakness SNOMED Code(s): 38931886 ICD Code: R53.1 - WEAKNESS Status: Resolved Priority: Medium Current Visit: Yes Problem List Initiated/Reviewed/Updated: Yes Orders Last 24hrs: Active Orders 24 hr Category Date Time Status Patient Status [ADT] Routine ADT 01/14/19 16:08 Active Patient Status [ADT] Routine ADT 01/14/19 16:15 Active Ambulate [RC] ASDIRECTED Care 01/14/19 16:15 Active Cardiac Monitoring [RC] CONTINUOUS Care 01/14/19 16:16 Active Height and Weight [RC] UPON Care 01/14/19 16:15 Active Intake and Output [RC] QSHIFT Care 01/14/19 16:16 Active May Shower [RC] ASDIRECTED Care 01/14/19 16:15 Active Oxygen Therapy [RC] PRN Care 01/14/19 16:08 Active Oxygen Therapy [RC] PRN Care 01/14/19 16:15 Active Pneumonia Education [RC] Click to Edit Care 01/14/19 16:08 Active RT Aerosol Therapy [RC] ASDIRECTED Care 01/14/19 16:09 Active RT Incentive Spirometry [RC] Q2HWA Care 01/14/19 16:08 Active Smoking Cessation Education [RC] DAILY Care 01/14/19 16:13 Active VTE/DVT Education [RC] PER UNIT ROUTINE Care 01/14/19 16:15 Active Vital Signs [RC] 06,10,14,18,22,02 Care 01/14/19 16:15 Active Consult to Case Management/Evaluation Analyst [CONS] Cons 01/14/19 16:08 Active Routine Respiratory Care Assess and Treatment [CONS] Routine Cons 01/14/19 16:20 Ordered Regular Diet [DIET] Diet 01/14/19 Breakfast Active BASIC METABOLIC PANEL,BMP [CHEM] Routine Lab 01/15/19 05:11 Ordered BLOOD GAS ARTERIAL [BG] Stat Lab 01/14/19 16:15 Ordered CBC WITH AUTO DIFF [HEME] Routine Lab 01/14/19 16:13 Ordered CBC WITH AUTO DIFF [HEME] Routine Lab 01/15/19 05:11 Ordered COMPREHENSIVE METABOLIC PN,CMP [CHEM] Routine Lab 01/14/19 16:13 Ordered CRP [C-REACTIVE PROTEIN] [CHEM] Routine Lab 01/14/19 16:13 Ordered CULTURE BLOOD [BC] Stat Lab 01/14/19 16:08 Ordered CULTURE BLOOD [BC] Stat Lab 01/14/19 16:08 Ordered INFLUENZA A+B AG SCREEN [RM] Stat Lab 01/14/19 16:08 Ordered LACTIC ACID [CHEM] Routine Lab 01/14/19 16:13 Ordered LEGIONELLA ANTIGEN [MREF] Stat Lab 01/14/19 16:08 Ordered MAGNESIUM [CHEM] Routine Lab 01/14/19 16:14 Ordered PHOSPHORUS [CHEM] Routine Lab 01/14/19 16:14 Ordered UA RFX FROILAN AND CULT IF INDIC [URIN] Stat Lab 01/14/19 16:14 Ordered Acetaminophen [Tylenol] Med 01/14/19 16:15 Ordered 650 mg PO Q4H PRN Albuterol/Ipratropium [DuoNeb 3.0-0.5 MG/3 ML] Med 01/14/19 16:15 Ordered 3 ml NEB Q4H Azithromycin [Zithromax] 500 mg Med 01/14/19 16:15 Ordered Sodium Chloride 0.9% [Normal Saline] 250 ml IV Q24H Docusate Sodium [Colace] Med 01/14/19 16:15 Ordered 100 mg PO BID PRN Enoxaparin [Lovenox] Med 01/14/19 16:30 Ordered 40 mg SUBCUT DAILY Nicotine [Habitrol] Med 01/14/19 16:30 Ordered 21 mg TRDERM DAILY Ondansetron [Zofran ODT] Med 01/14/19 16:15 Ordered 4 mg PO Q6H PRN Polyethylene Glycol 3350 [MiraLAX] Med 01/14/19 16:15 Ordered 17 gm PO DAILY PRN Sodium Chloride 0.9% [Normal Saline] 1,000 ml Med 01/14/19 16:15 Ordered IV ASDIRECTED Sodium Chloride 0.9% [Normal Saline] 1,000 ml Med 01/14/19 16:11 Ordered IV ONETIME Sodium Chloride 0.9% [Saline Flush] Med 01/14/19 16:08 Ordered 10 ml FLUSH ASDIRECTED PRN Sodium Chloride 0.9% [Saline Flush] Med 01/14/19 16:08 Ordered 10 ml FLUSH ASDIRECTED PRN Zolpidem [Ambien] Med 01/14/19 16:15 Ordered 10 mg PO BEDTIME PRN cefTRIAXone [Rocephin] Med 01/14/19 16:15 Ordered 2 gm IVPUSH Q24H methylPREDNISolone Sod Succ [Solu-MEDROL] Med 01/14/19 16:15 Ordered 125 mg IVPUSH Q12H Blood Culture x2 Reflex Set [OM.PC] Stat Oth 01/14/19 16:08 Ordered Peripheral IV Insertion Adult [OM.PC] Stat Oth 01/14/19 16:08 Ordered Resuscitation Status Routine Resus Stat 01/14/19 16:15 Ordered Medication Orders Acetaminophen (Tylenol) 650 mg PO Q4H PRN PRN Reason: Pain (Mild 1-3)/fever Albuterol/Ipratropium (Duoneb 3.0-0.5 Mg/3 Ml) 3 ml NEB Q4H [place] Ceftriaxone Sodium (Rocephin) 2 gm IVPUSH Q24H [place] Docusate Sodium (Colace) 100 mg PO BID PRN PRN Reason: Constipation Enoxaparin Sodium (Lovenox) 40 mg SUBCUT DAILY [place] Azithromycin 500 mg/ Sodium (Chloride) 250 mls @ 250 mls/hr IV Q24H [place] Sodium Chloride (Normal Saline) 1,000 mls @ 999 mls/hr IV ONETIME ONE Stop: 01/14/19 17:11 Sodium Chloride (Normal Saline) 1,000 mls @ 125 mls/hr IV ASDIRECTED [place] Methylprednisolone Sodium Succinate (Solu-Medrol) 125 mg IVPUSH Q12H [place] Nicotine (Habitrol) 21 mg TRDERM DAILY [place] Ondansetron HCl (Zofran Odt) 4 mg PO Q6H PRN PRN Reason: nausea, able to take PO Polyethylene Glycol (Miralax) 17 gm PO DAILY PRN PRN Reason: Constipation Sodium Chloride (Saline Flush) 10 ml FLUSH ASDIRECTED PRN PRN Reason: Keep Vein Open Sodium Chloride (Saline Flush) 10 ml FLUSH ASDIRECTED PRN PRN Reason: Keep Vein Open Zolpidem Tartrate (Ambien) 10 mg PO BEDTIME PRN PRN Reason: Sleep Assessment/Plan Comment:: 43 yo male patient with no past medical history is admitted to the acute care floor at [facility] for pneumonia, SOB, hypoxia, and dehydration. Start abx therapy. Obtain admit labs. CT of chest with contrast. IVF. Resp care consult. Admit acute. Anticipate stay of 3-4 days. Full code. Will transfer to higher level of care shoulder the need arise. NOTE: Patient seen and examined by me as an [facility] provider. Dr. Haritha Sanchez is aware of this admission
[2019-01-14] MEDS: methylPREDNISolone Sodium Succinate 125 MG/2 ML SDV IVPUSH SCH (16:52)
[2019-01-14] MEDS: cefTRIAXone 1 GM Vial IVPUSH SCH (16:52)
[2019-01-14] MEDS: Nicotine 21 MG/24 Hr Patch TRDERM SCH (16:53)
[2019-01-14] MEDS: Azithromycin 500 MG in Sodium Chloride 0.9% 250 ML IV SCH (16:53)
[2019-01-14 17:06] LABS: CHLORIDE,CL 102 mmol/L (98-107); SODIUM,NA 142 mmol/L (136-145)
[2019-01-14] MEDS ORDERED: Iopamidol 612 MG/ML 100 ML Bottle IVPUSH ONE (17:09)
[2019-01-14 17:17] LABS: ANION GAP 10.7 mmol/L (10-20)
[2019-01-14] MEDS ORDERED: Enoxaparin 40 MG/0.4 ML Syringe SUBCUT SCH (18:00)
[2019-01-14] MEDS: Albuterol/Ipratropium 3.0-0.5 MG/3 ML Neb Soln NEB SCH ×2 (18:28→22:46)
--- NOTE | 2019-01-14 18:57 | CT ---
[id number] CT/CT Chest W IV Exam: CT Chest W IV Clinical Data: SHORTNESS OF BREATH. PNEUMONIA. COMPARISON: CORRELATION IS MADE WITH THE EXAM OF FEBRUARY 24, 2018. FINDINGS: A developing 1 cm nodular density is seen in the posterior segment of the right upper lobe on image 43, series 2. Patchy minimal right upper lobe nodular densities are seen. Minimal left upper lobe nodular densities are seen. The majority of this finding have developed since the last exam. IV contrast was used. There is no mediastinal mass or adenopathy. The great vessels are intact. Pulmonary artery technique for possible pulmonary embolus opacification was not performed. No obvious large central pulmonary emboli are seen. There is a fatty appearance of liver. There is mild hepatomegaly. There is mild splenomegaly. IMPRESSION: PATCHY MINIMAL BILATERAL PULMONARY PARENCHYMAL CHANGES. CONSIDER PLAIN FILM FOLLOW-UP. DIFFERENTIAL DIAGNOSIS INCLUDES INFECTIOUS PROCESSES. Dante Damon MD 01/14/19 1613 Thank you for allowing us to participate in the care of your patient.
[2019-01-14] MEDS: Sodium Chloride 0.9% 1,000 ML IV SCH (19:20)
[2019-01-14] MEDS: Enoxaparin 40 MG/0.4 ML Syringe SUBCUT SCH (19:20)
[2019-01-15] MEDS: Sodium Chloride 0.9% 1,000 ML IV SCH ×3 (01:27→19:21)
[2019-01-15] MEDS: Albuterol/Ipratropium 3.0-0.5 MG/3 ML Neb Soln NEB SCH ×6 (03:51→22:15)
[2019-01-15] MEDS: methylPREDNISolone Sodium Succinate 125 MG/2 ML SDV IVPUSH SCH ×2 (03:52→16:01)
[2019-01-15] MEDS: Nicotine 21 MG/24 Hr Patch TRDERM SCH (07:33)
[2019-01-15 07:45] LABS: ANION GAP 11.9 mmol/L (10-20); CHLORIDE,CL 104 mmol/L (98-107); SODIUM,NA 144 mmol/L (136-145)
--- NOTE | 2019-01-15 09:45 | PCM.PN ---
- General Info Date of Service: 01/15/19 Admission Dx/Problem (Free Text): Admission Diagnosis/Problem Admission Diagnosis/Problem Pneumonia Hypoxia Dehydration SOB Subjective Update: Patient states he still feel considerably SOB. Has a dry nonproductive cough. Feels fatigued and tired. No chest pain. No focal neurological complaints. He is tolerating diet ok. No issues with BM's or urination. Functional Status: Reports: Pain Controlled, Tolerating Diet, Ambulating, Urinating. Denies: New Symptoms Pain Score: 0 - Review of Systems General: Reports: Fatigue. Denies: Fever, Chills Pulmonary: Reports: Shortness of Breath, Cough. Denies: Sputum Cardiovascular: Denies: Chest Pain, Palpitations Gastrointestinal: Denies: Abdominal Pain, Nausea, Vomiting Skin: Reports: No Symptoms Neurological: Reports: No Symptoms - Patient Data Vitals - Most Recent: Last Vital Signs Temp 35.9 C 01/15/19 06:00 Pulse 91 01/15/19 06:00 Resp 16 01/15/19 06:00 BP 154/89 H 01/15/19 06:00 Pulse Ox 93 L 01/15/19 06:00 Weight - Most Recent: 151.046 kg I&O - Last 24 Hours: Intake & Output 01/14/19 01/15/19 01/15/19 22:59 06:59 14:59 Intake Total 1499 1314 420 Balance 1499 1314 420 Lab Results Last 24 Hours: Laboratory Results - last 24 hr 01/14/19 01/14/19 01/14/19 Range/Units 16:14 16:32 16:32 WBC 10.0 (4.0-10.0) x10^3/uL RBC 5.24 (4.5-6.0) x10^6/uL Hgb 18.3 H D (14.0-18.0) g/dL Hct 54.7 H (40.0-52.0) % MCV 104.4 H (78.0-93.0) fL MCH 34.9 H (26.0-32.0) pg MCHC 33.5 (32.0-36.0) g/dL RDW Coeff of Jamie 15.6 H (10.0-15.0) % Plt Count 141 (130-400) x10^3/uL Neut % (Auto) 73.3 (50.0-80.0) % Lymph % (Auto) 11.1 L (25.0-50.0) % [place] % (Auto) 14.7 H (2.0-11.0) % Eos % (Auto) 0.7 (0.0-4.0) % Baso % (Auto) 0.2 (0.2-1.2) % Add Manual Diff Neutrophils % (Manual) (50-80) % Band Neutrophils % (0-6) % Lymphocytes % (Manual) (25-50) % Platelet Estimate Anisocytosis Macrocytosis Target Cells Ovalocytes POC ABG pH (7.35-7.45) POC ABG pCO2 (35-45) mmHG POC ABG pO2 (80-105) mmHG POC ABG HCO3 (22-26) mmol/L POC ABG Total CO2 (23-27) mmol/L POC ABG O2 Sat (95-98) % POC ABG Base Excess (-2-3) mmol/L POC FiO2 Sodium 142 (136-145) mmol/L Potassium 4.7 (3.5-5.1) mmol/L Chloride 102 (98-107) mmol/L Carbon Dioxide 34 H (21-32) mmol/L Anion Gap 10.7 (10-20) mmol/L BUN 13 (7-18) mg/dL Creatinine 1.1 (0.70-1.30) mg/dL Est Cr Clr Drug Dosing TNP Estimated GFR (MDRD) > 60 Glucose 91 (74-106) mg/dL Lactic Acid (0.4-2.0) mmol/L Calcium 9.3 (8.5-10.1) mg/dL Corrected Calcium 9.86 (8.5-10.1) mg/dL Phosphorus 3.6 (2.6-4.7) mg/dL Magnesium 1.8 (1.8-2.4) mg/dL Total Bilirubin 0.5 (0.2-1.0) mg/dL AST 18 (15-37) U/L ALT 35 (16-63) U/L Alkaline Phosphatase 112 (46-116) U/L C-Reactive Protein 8.6 H (<=0.9) mg/dL Total Protein 6.9 (6.4-8.2) g/dL Albumin 3.3 L (3.4-5.0) g/dL Globulin 3.6 Albumin/Globulin Ratio 0.92 POC Result Comm Urine Color Yellow (YELLOW) Urine Appearance Clear (CLEAR) Urine pH 7.0 (5.0-8.0) Ur Specific [place] 1.020 Urine Protein Trace H (NEGATIVE) mg/dL Urine Glucose (UA) Negative (NEGATIVE) mg/dL Urine Ketones Negative (NEGATIVE) mg/dL Urine Occult Blood Negative (NEGATIVE) Urine Nitrite Negative (NEGATIVE) Urine Bilirubin Negative (NEGATIVE) Urine Urobilinogen 0.2 (0.2) EU/dL Ur Leukocyte Esterase Negative (NEGATIVE) Urine RBC Not seen (NOT SEEN) /HPF Urine WBC Not seen (NOT SEEN) /HPF Ur Squamous Epith Cells Not seen (NEGATIVE) /HPF Urine Bacteria Not seen (NEGATIVE) /HPF Urine Mucus Not seen (NEGATIVE) /LPF 01/14/19 01/14/19 01/15/19 Range/Units 16:32 17:17 06:25 WBC 10.7 H (4.0-10.0) x10^3/uL RBC 5.34 (4.5-6.0) x10^6/uL Hgb 17.9 (14.0-18.0) g/dL Hct 58.5 H (40.0-52.0) % MCV 109.6 H D (78.0-93.0) fL MCH 33.5 H (26.0-32.0) pg MCHC 30.6 L (32.0-36.0) g/dL RDW Coeff of [place] 15.4 H (10.0-15.0) % Plt Count 129 L (130-400) x10^3/uL Neut % (Auto) (50.0-80.0) % Lymph % (Auto) (25.0-50.0) % [place] % (Auto) (2.0-11.0) % Eos % (Auto) (0.0-4.0) % Baso % (Auto) (0.2-1.2) % Add Manual Diff Yes Neutrophils % (Manual) 91 H (50-80) % Band Neutrophils % 5 (0-6) % Lymphocytes % (Manual) 4 L (25-50) % Platelet Estimate Adequate Anisocytosis 2+ moderate H Macrocytosis 3+ marked H Target Cells 1+ slight H Ovalocytes 1+ slight H POC ABG pH 7.359 (7.35-7.45) POC ABG pCO2 61 H* (35-45) mmHG POC ABG pO2 78 L (80-105) mmHG POC ABG HCO3 34 H (22-26) mmol/L POC ABG Total CO2 36 H (23-27) mmol/L POC ABG O2 Sat 94 L (95-98) % POC ABG Base Excess 9 H (-2-3) mmol/L POC FiO2 0.60 Sodium (136-145) mmol/L Potassium (3.5-5.1) mmol/L Chloride (98-107) mmol/L Carbon Dioxide (21-32) mmol/L Anion Gap (10-20) mmol/L BUN (7-18) mg/dL Creatinine (0.70-1.30) mg/dL Est Cr Clr Drug Dosing Estimated GFR (MDRD) Glucose (74-106) mg/dL Lactic Acid 0.9 (0.4-2.0) mmol/L Calcium (8.5-10.1) mg/dL Corrected Calcium (8.5-10.1) mg/dL Phosphorus (2.6-4.7) mg/dL Magnesium (1.8-2.4) mg/dL Total Bilirubin (0.2-1.0) mg/dL AST (15-37) U/L ALT (16-63) U/L Alkaline Phosphatase (46-116) U/L C-Reactive Protein (<=0.9) mg/dL Total Protein (6.4-8.2) g/dL Albumin (3.4-5.0) g/dL Globulin Albumin/Globulin Ratio POC Result Comm Called critical res Urine Color (YELLOW) Urine Appearance (CLEAR) Urine pH (5.0-8.0) Ur Specific [place] Urine Protein (NEGATIVE) mg/dL Urine Glucose (UA) (NEGATIVE) mg/dL Urine Ketones (NEGATIVE) mg/dL Urine Occult Blood (NEGATIVE) Urine Nitrite (NEGATIVE) Urine Bilirubin (NEGATIVE) Urine Urobilinogen (0.2) EU/dL Ur Leukocyte Esterase (NEGATIVE) Urine RBC (NOT SEEN) /HPF Urine WBC (NOT SEEN) /HPF Ur Squamous Epith Cells (NEGATIVE) /HPF Urine Bacteria (NEGATIVE) /HPF Urine Mucus (NEGATIVE) /LPF 02/21/19 Range/Units 06:25 WBC (4.0-10.0) x10^3/uL RBC (4.5-6.0) x10^6/uL Hgb (14.0-18.0) g/dL Hct (40.0-52.0) % MCV (78.0-93.0) fL MCH (26.0-32.0) pg MCHC (32.0-36.0) g/dL RDW Coeff of [place] (10.0-15.0) % Plt Count (130-400) x10^3/uL Neut % (Auto) (50.0-80.0) % Lymph % (Auto) (25.0-50.0) % [place] % (Auto) (2.0-11.0) % Eos % (Auto) (0.0-4.0) % Baso % (Auto) (0.2-1.2) % Add Manual Diff Neutrophils % (Manual) (50-80) % Band Neutrophils % (0-6) % Lymphocytes % (Manual) (25-50) % Platelet Estimate Anisocytosis Macrocytosis Target Cells Ovalocytes POC ABG pH (7.35-7.45) POC ABG pCO2 (35-45) mmHG POC ABG pO2 (80-105) mmHG POC ABG HCO3 (22-26) mmol/L POC ABG Total CO2 (23-27) mmol/L POC ABG O2 Sat (95-98) % POC ABG Base Excess (-2-3) mmol/L POC FiO2 Sodium 144 (136-145) mmol/L Potassium 4.9 (3.5-5.1) mmol/L Chloride 104 (98-107) mmol/L Carbon Dioxide 33 H (21-32) mmol/L Anion Gap 11.9 (10-20) mmol/L BUN 15 (7-18) mg/dL Creatinine 1.0 (0.70-1.30) mg/dL Est Cr Clr Drug Dosing 105.62 Estimated GFR (MDRD) > 60 Glucose 148 H (74-106) mg/dL Lactic Acid (0.4-2.0) mmol/L Calcium 8.4 L (8.5-10.1) mg/dL Corrected Calcium (8.5-10.1) mg/dL Phosphorus (2.6-4.7) mg/dL Magnesium (1.8-2.4) mg/dL Total Bilirubin (0.2-1.0) mg/dL AST (15-37) U/L ALT (16-63) U/L Alkaline Phosphatase (46-116) U/L C-Reactive Protein (<=0.9) mg/dL Total Protein (6.4-8.2) g/dL Albumin (3.4-5.0) g/dL Globulin Albumin/Globulin Ratio POC Result Comm Urine Color (YELLOW) Urine Appearance (CLEAR) Urine pH (5.0-8.0) Ur Specific [place] Urine Protein (NEGATIVE) mg/dL Urine Glucose (UA) (NEGATIVE) mg/dL Urine Ketones (NEGATIVE) mg/dL Urine Occult Blood (NEGATIVE) Urine Nitrite (NEGATIVE) Urine Bilirubin (NEGATIVE) Urine Urobilinogen (0.2) EU/dL Ur Leukocyte Esterase (NEGATIVE) Urine RBC (NOT SEEN) /HPF Urine WBC (NOT SEEN) /HPF Ur Squamous Epith Cells (NEGATIVE) /HPF Urine Bacteria (NEGATIVE) /HPF Urine Mucus (NEGATIVE) /LPF Roberto Results Last 24 Hours: Microbiology 01/14/19 16:20 Influenza Type A Antigen Screen - Final Nasopharyngeal Swab NEGATIVE INFLUENZA A VIRUS AG Influenza Type B Antigen Screen - Final NEGATIVE INFLUENZA B VIRUS AG Med Orders - Current: Current Medications Acetaminophen (Tylenol) 650 mg PO Q4H PRN PRN Reason: Pain (Mild 1-3)/fever Albuterol/Ipratropium (Duoneb 3.0-0.5 Mg/3 Ml) 3 ml NEB Q4HRRT [facility] Last Admin: 01/15/19 06:27 Dose: 3 ml Ceftriaxone Sodium (Rocephin) 2 gm IVPUSH Q24H [facility] Last Admin: 01/14/19 16:52 Dose: 2 gm Docusate Sodium (Colace) 100 mg PO BID PRN PRN Reason: Constipation Enoxaparin Sodium (Lovenox) 40 mg SUBCUT DAILY@1999 [facility] Last Admin: 01/14/19 19:20 Dose: 40 mg Azithromycin 500 mg/ Sodium (Chloride) 250 mls @ 250 mls/hr IV Q24H [facility] Last Admin: 01/14/19 16:53 Dose: 250 mls/hr Sodium Chloride (Normal Saline) 1,000 mls @ 125 mls/hr IV ASDIRECTED [facility] Last Admin: 01/15/19 01:27 Dose: 125 mls/hr Methylprednisolone Sodium Succinate (Solu-Medrol) 125 mg IVPUSH Q12H [facility] Last Admin: 01/15/19 03:52 Dose: 125 mg Nicotine (Habitrol) 21 mg TRDERM DAILY [facility] Last Admin: 01/15/19 07:33 Dose: 21 mg Ondansetron HCl (Zofran Odt) 4 mg PO Q6H PRN PRN Reason: nausea, able to take PO Polyethylene Glycol (Miralax) 17 gm PO DAILY PRN PRN Reason: Constipation Sodium Chloride (Saline Flush) 10 ml FLUSH ASDIRECTED PRN PRN Reason: Keep Vein Open Sodium Chloride (Saline Flush) 10 ml FLUSH ASDIRECTED PRN PRN Reason: Keep Vein Open Last Admin: 01/15/19 03:52 Dose: 10 ml Zolpidem Tartrate (Ambien) 10 mg PO BEDTIME PRN PRN Reason: Sleep Discontinued Medications Albuterol/Ipratropium (Duoneb 3.0-0.5 Mg/3 Ml) 3 ml NEB Q4H [facility] Last Admin: 01/14/19 17:01 Dose: Not Given Enoxaparin Sodium (Lovenox) 40 mg SUBCUT DAILY@1800 [place] Sodium Chloride (Normal Saline) 1,000 mls @ 999 mls/hr IV ONETIME ONE Stop: 01/14/19 17:11 Last Admin: 01/14/19 16:54 Dose: 999 mls/hr Iopamidol (Isovue-300 (61%)) 100 ml IVPUSH ONETIME ONE Stop: 01/14/19 17:10 Last Admin: 01/14/19 18:20 Dose: 100 ml - Exam Quality Assessment: Supplemental Oxygen, DVT Prophylaxis. No: Skin Breakdown General: Alert, Oriented, Cooperative, No Acute Distress Lungs: Decreased Breath Sounds, Crackles, Rhonchi, Wheezing Cardiovascular: Regular Rhythm, Tachycardia GI/Abdominal Exam: Soft, Non-Tender, Abnormal Bowel Sounds (Hypoactive) Peripheral Pulses: 2+: Radial (L), Radial (R) Skin: Warm, Dry, Intact Neurological: No New Focal Deficit - Problem List & Annotations (1) CAP (community acquired pneumonia) SNOMED Code(s): 597667896 Code(s): J18.9 - PNEUMONIA, UNSPECIFIED ORGANISM Status: Acute Priority: High Current Visit: Yes Qualifiers: Laterality: right Lung location: middle lobe of lung Qualified Code(s): J18.1 - Lobar pneumonia, unspecified organism (2) Dehydration SNOMED Code(s): 13789291 Code(s): E86.0 - DEHYDRATION Status: Acute Priority: Medium Current Visit: Yes (3) Shortness of breath SNOMED Code(s): 703610259 Code(s): R06.02 - SHORTNESS OF BREATH Status: Acute Priority: High Current Visit: Yes (4) Hypoxia SNOMED Code(s): 995505909 Code(s): R09.02 - HYPOXEMIA Status: Resolved Priority: High Current Visit: Yes (5) Weakness SNOMED Code(s): 70383090 Code(s): R53.1 - WEAKNESS Status: Resolved Priority: Medium Current Visit: Yes (6) COPD exacerbation SNOMED Code(s): 645378760 Code(s): J44.1 - CHRONIC OBSTRUCTIVE PULMONARY DISEASE W (ACUTE) EXACERBATION Status: Acute Priority: High Current Visit: Yes Onset Date : ~01/14/19 - Problem List Review Problem List Initiated/Reviewed/Updated: Yes - My Orders Last 24 Hours: My Active Orders 01/14/19 16:08 Patient Status [ADT] Routine Oxygen Therapy [RC] PRN Pneumonia Education [RC] Click to Edit RT Incentive Spirometry [RC] Q2HWA Consult to Case Management/Dice Maker [CONS] Routine Sodium Chloride 0.9% [Saline Flush] 10 ml FLUSH ASDIRECTED PRN Sodium Chloride 0.9% [Saline Flush] 10 ml FLUSH ASDIRECTED PRN Blood Culture x2 Reflex Set [OM.PC] Stat Peripheral IV Insertion Adult [OM.PC] Stat 01/14/19 16:09 RT Aerosol Therapy [RC] 03,07,11,15,19,23 01/14/19 16:13 Smoking Cessation Education [RC] .PRN 01/14/19 16:15 Patient Status [ADT] Routine Ambulate [RC] ASDIRECTED Height and Weight [RC] .PRN May Shower [RC] ASDIRECTED Oxygen Therapy [RC] PRN VTE/DVT Education [RC] .PRN Vital Signs [RC] 06,10,14,18,22,02 Acetaminophen [Tylenol] 650 mg PO Q4H PRN Azithromycin [Zithromax] 500 mg Sodium Chloride 0.9% [Normal Saline] 250 ml IV Q24H Docusate Sodium [Colace] 100 mg PO BID PRN Ondansetron [Zofran ODT] 4 mg PO Q6H PRN Polyethylene Glycol 3350 [MiraLAX] 17 gm PO DAILY PRN Sodium Chloride 0.9% [Normal Saline] 1,000 ml IV ASDIRECTED Zolpidem [Ambien] 10 mg PO BEDTIME PRN cefTRIAXone [Rocephin] 2 gm IVPUSH Q24H methylPREDNISolone Sod Succ [Solu-MEDROL] 125 mg IVPUSH Q12H Resuscitation Status Routine 01/14/19 16:16 Cardiac Monitoring [RC] 06,10,14,18,22,02 Intake and Output [RC] 06,18 01/14/19 16:20 Respiratory Care Assess and Treatment [CONS] Routine 01/14/19 16:30 Nicotine [Habitrol] 21 mg TRDERM DAILY 01/14/19 16:32 CULTURE BLOOD [BC] Stat 01/14/19 16:40 CULTURE BLOOD [BC] Stat 01/14/19 17:53 EKG 12 Lead [EKG Documentation Completion] [RC] STAT 01/14/19 19:00 Albuterol/Ipratropium [DuoNeb 3.0-0.5 MG/3 ML] 3 ml NEB Q4HRRT 01/14/19 20:00 Enoxaparin [Lovenox] 40 mg SUBCUT DAILY@199901/14/19 23:45 LEGIONELLA ANTIGEN [MREF] Stat 01/15/19 06:25 BLOOD SMEARS TO PATHOLOGIST [REF] Stat PROCALCITONIN [REF] Stat 01/15/19 08:19 RESPIRATORY PANEL Stat 01/15/19 08:21 Chest 2V [CR] Routine - Assessment Assessment:: COPD exacerbation RLL Pneumonia Dehydration Hypoxia Weakness - Plan Plan:: 43 yo male patient with no past medical history is admitted to the acute care floor at [facility] for pneumonia, SOB, hypoxia, and dehydration. Start abx therapy. Obtain admit labs. CT of chest with contrast questionable RUL nodules. IVF. Resp care consult. Admit acute. Anticipate stay of 3-4 days. Full code. Will transfer to higher level of care shoulder the need arise. Continue same cares today. NOTE: Patient seen and examined by me as an [facility] provider.
--- NOTE | 2019-01-15 11:14 | CR ---
[id number] RAD/RAD Chest PA And Lateral EXAM: RAD Chest PA And Lateral INDICATION: COPD, SHORTNESS OF BREATH, HYPOXIA. COMPARISON: February 23, 2018. DISCUSSION: Cardiomediastinal silhouette is stable in size and contour. No infiltrate, effusion, or pneumothorax. Pulmonary vascular congestion. IMPRESSION: Pulmonary vascular congestion. Justin Kwon DO 01/15/19 1113 Thank you for allowing us to participate in the care of your patient.
[2019-01-15] MEDS: Azithromycin 500 MG in Sodium Chloride 0.9% 250 ML IV SCH (16:01)
[2019-01-15] MEDS: cefTRIAXone 1 GM Vial IVPUSH SCH (16:01)
[2019-01-15] MEDS: Enoxaparin 40 MG/0.4 ML Syringe SUBCUT SCH (19:20)
[2019-01-16] MEDS: Sodium Chloride 0.9% 1,000 ML IV SCH ×3 (01:38→23:33)
[2019-01-16] MEDS: Albuterol/Ipratropium 3.0-0.5 MG/3 ML Neb Soln NEB SCH ×6 (03:45→22:46)
[2019-01-16] MEDS: methylPREDNISolone Sodium Succinate 125 MG/2 ML SDV IVPUSH SCH (04:10)
[2019-01-16 06:44] LABS: CHLORIDE,CL 106 mmol/L (98-107); SODIUM,NA 144 mmol/L (136-145)
[2019-01-16 06:51] LABS: ANION GAP 8.8 mmol/L (10-20)
[2019-01-16] MEDS ORDERED: methylPREDNISolone Sodium Succinate 40 MG/1 ML SDV IVPUSH SCH (07:30)
--- NOTE | 2019-01-16 07:34 | PCM.PN ---
- General Info Date of Service: 01/16/19 Admission Dx/Problem (Free Text): Admission Diagnosis/Problem Admission Diagnosis/Problem Pneumonia Hypoxia Dehydration SOB Subjective Update: Patient states he still feel considerably SOB. Has a dry nonproductive cough. Feels fatigued and tired. No chest pain. No focal neurological complaints. He is tolerating diet ok. No issues with BM's or urination. Functional Status: Reports: Pain Controlled, Tolerating Diet, Urinating Pain Score: 0 - Review of Systems General: Denies: Fever, Chills Pulmonary: Reports: Shortness of Breath, Wheezing. Denies: Cough, Sputum Cardiovascular: Denies: Chest Pain, Palpitations Gastrointestinal: Denies: Abdominal Pain, Nausea, Vomiting Skin: Reports: No Symptoms Neurological: Reports: No Symptoms - Patient Data Vitals - Most Recent: Last Vital Signs Temp 36.4 C 01/16/19 05:24 Pulse 98 01/16/19 05:24 Resp 20 01/16/19 05:24 BP 140/72 01/16/19 05:24 Pulse Ox 91 L 01/16/19 07:18 Weight - Most Recent: 151.046 kg I&O - Last 24 Hours: Intake & Output 01/15/19 01/16/19 01/16/19 22:59 06:59 14:59 Intake Total 1447 1997 Output Total 500 Balance 1447 1997 - Lab Results Last 24 Hours: Laboratory Results - last 24 hr 01/14/19 01/15/19 01/15/19 Range/Units 16:14 06:25 06:25 WBC 10.7 H (4.0-10.0) x10^3/uL RBC 5.34 (4.5-6.0) x10^6/uL Hgb 17.9 (14.0-18.0) g/dL Hct 58.5 H (40.0-52.0) % MCV 109.6 H D (78.0-93.0) fL MCH 33.5 H (26.0-32.0) pg MCHC 30.6 L (32.0-36.0) g/dL RDW Coeff of Jamie 15.4 H (10.0-15.0) % Plt Count 129 L (130-400) x10^3/uL Neut % (Auto) (50.0-80.0) % Lymph % (Auto) (25.0-50.0) % [place] % (Auto) (2.0-11.0) % Eos % (Auto) (0.0-4.0) % Baso % (Auto) (0.2-1.2) % Add Manual Diff Yes Neutrophils % (Manual) 91 H (50-80) % Band Neutrophils % 5 (0-6) % Lymphocytes % (Manual) 4 L (25-50) % Platelet Estimate Adequate Anisocytosis 2+ moderate H Macrocytosis 3+ marked H Target Cells 1+ slight H Ovalocytes 1+ slight H Sodium 144 (136-145) mmol/L Potassium 4.9 (3.5-5.1) mmol/L Chloride 104 (98-107) mmol/L Carbon Dioxide 33 H (21-32) mmol/L Anion Gap 11.9 (10-20) mmol/L BUN 15 (7-18) mg/dL Creatinine 1.0 (0.70-1.30) mg/dL Est Cr Clr Drug Dosing 105.62 mL/min Estimated GFR (MDRD) > 60 Glucose 148 H (74-106) mg/dL Calcium 8.4 L (8.5-10.1) mg/dL Magnesium (1.8-2.4) mg/dL Procalcitonin (<0.10) ng/mL Urine Color Yellow (YELLOW) Urine Appearance Clear (CLEAR) Urine pH 7.0 (5.0-8.0) Ur Specific [place] 1.020 Urine Protein Trace H (NEGATIVE) mg/dL Urine Glucose (UA) Negative (NEGATIVE) mg/dL Urine Ketones Negative (NEGATIVE) mg/dL Urine Occult Blood Negative (NEGATIVE) Urine Nitrite Negative (NEGATIVE) Urine Bilirubin Negative (NEGATIVE) Urine Urobilinogen 0.2 (0.2) EU/dL Ur Leukocyte Esterase Negative (NEGATIVE) Urine RBC Not seen (NOT SEEN) /HPF Urine WBC Not seen (NOT SEEN) /HPF Ur Squamous Epith Cells Not seen (NEGATIVE) /HPF Urine Bacteria Not seen (NEGATIVE) /HPF Urine Mucus Not seen (NEGATIVE) /LPF 01/15/19 01/16/19 01/16/19 Range/Units 06:25 06:09 06:09 WBC 15.8 H (4.0-10.0) x10^3/uL RBC 5.10 (4.5-6.0) x10^6/uL Hgb 17.3 (14.0-18.0) g/dL Hct 56.2 H (40.0-52.0) % MCV 110.2 H (78.0-93.0) fL MCH 33.9 H (26.0-32.0) pg MCHC 30.8 L (32.0-36.0) g/dL RDW Coeff of [place] 15.6 H (10.0-15.0) % Plt Count 139 (130-400) x10^3/uL Neut % (Auto) 85.8 H (50.0-80.0) % Lymph % (Auto) 3.4 L (25.0-50.0) % [place] % (Auto) 10.5 (2.0-11.0) % Eos % (Auto) 0.1 (0.0-4.0) % Baso % (Auto) 0.2 (0.2-1.2) % Add Manual Diff Neutrophils % (Manual) (50-80) % Band Neutrophils % (0-6) % Lymphocytes % (Manual) (25-50) % Platelet Estimate Anisocytosis Macrocytosis Target Cells Ovalocytes Sodium 144 (136-145) mmol/L Potassium 4.8 (3.5-5.1) mmol/L Chloride 106 (98-107) mmol/L Carbon Dioxide 34 H (21-32) mmol/L Anion Gap 8.8 L (10-20) mmol/L BUN 17 (7-18) mg/dL Creatinine 1.0 (0.70-1.30) mg/dL Est Cr Clr Drug Dosing 105.62 mL/min Estimated GFR (MDRD) > 60 Glucose 187 H (74-106) mg/dL Calcium 8.4 L (8.5-10.1) mg/dL Magnesium 2.0 (1.8-2.4) mg/dL Procalcitonin <0.05 (<0.10) ng/mL Urine Color (YELLOW) Urine Appearance (CLEAR) Urine pH (5.0-8.0) Ur Specific [place] Urine Protein (NEGATIVE) mg/dL Urine Glucose (UA) (NEGATIVE) mg/dL Urine Ketones (NEGATIVE) mg/dL Urine Occult Blood (NEGATIVE) Urine Nitrite (NEGATIVE) Urine Bilirubin (NEGATIVE) Urine Urobilinogen (0.2) EU/dL Ur Leukocyte Esterase (NEGATIVE) Urine RBC (NOT SEEN) /HPF Urine WBC (NOT SEEN) /HPF Ur Squamous Epith Cells (NEGATIVE) /HPF Urine Bacteria (NEGATIVE) /HPF Urine Mucus (NEGATIVE) /LPF Roberto Results Last 24 Hours: Microbiology 01/14/19 16:40 Aerobic Blood Culture - Preliminary Blood - Venous - Lab Draw NO GROWTH AFTER 1 DAY Anaerobic Blood Culture - Preliminary NO GROWTH AFTER 1 DAY 01/14/19 16:32 Aerobic Blood Culture - Preliminary Blood - Venous NO GROWTH AFTER 1 DAY Anaerobic Blood Culture - Preliminary NO GROWTH AFTER 1 DAY Med Orders - Current: Current Medications Acetaminophen (Tylenol) 650 mg PO Q4H PRN PRN Reason: Pain (Mild 1-3)/fever Albuterol/Ipratropium (Duoneb 3.0-0.5 Mg/3 Ml) 3 ml NEB Q4HRRT [facility] Last Admin: 01/16/19 07:10 Dose: 3 ml Ceftriaxone Sodium (Rocephin) 2 gm IVPUSH Q24H [facility] Last Admin: 01/15/19 16:01 Dose: 2 gm Docusate Sodium (Colace) 100 mg PO BID PRN PRN Reason: Constipation Enoxaparin Sodium (Lovenox) 40 mg SUBCUT DAILY@1999 [facility] Last Admin: 01/15/19 19:20 Dose: 40 mg Azithromycin 500 mg/ Sodium (Chloride) 250 mls @ 250 mls/hr IV Q24H [facility] Last Admin: 01/15/19 16:01 Dose: 250 mls/hr Sodium Chloride (Normal Saline) 1,000 mls @ 125 mls/hr IV ASDIRECTED [facility] Last Admin: 01/16/19 01:38 Dose: 125 mls/hr Methylprednisolone Sodium Succinate (Solu-Medrol) 40 mg IVPUSH Q12H [facility] Nicotine (Habitrol) 21 mg TRDERM DAILY [facility] Last Admin: 01/15/19 07:33 Dose: 21 mg Ondansetron HCl (Zofran Odt) 4 mg PO Q6H PRN PRN Reason: nausea, able to take PO Polyethylene Glycol (Miralax) 17 gm PO DAILY PRN PRN Reason: Constipation Sodium Chloride (Saline Flush) 10 ml FLUSH ASDIRECTED PRN PRN Reason: Keep Vein Open Last Admin: 01/16/19 04:10 Dose: 10 ml Sodium Chloride (Saline Flush) 10 ml FLUSH ASDIRECTED PRN PRN Reason: Keep Vein Open Last Admin: 01/15/19 03:52 Dose: 10 ml Zolpidem Tartrate (Ambien) 10 mg PO BEDTIME PRN PRN Reason: Sleep Discontinued Medications Albuterol/Ipratropium (Duoneb 3.0-0.5 Mg/3 Ml) 3 ml NEB Q4H [facility] Last Admin: 01/14/19 17:01 Dose: Not Given Enoxaparin Sodium (Lovenox) 40 mg SUBCUT DAILY@1800 [place] Sodium Chloride (Normal Saline) 1,000 mls @ 999 mls/hr IV ONETIME ONE Stop: 01/14/19 17:11 Last Admin: 01/14/19 16:54 Dose: 999 mls/hr Iopamidol (Isovue-300 (61%)) 100 ml IVPUSH ONETIME ONE Stop: 01/14/19 17:10 Last Admin: 01/14/19 18:20 Dose: 100 ml Methylprednisolone Sodium Succinate (Solu-Medrol) 125 mg IVPUSH Q12H [facility] Last Admin: 01/16/19 04:10 Dose: 125 mg - Exam Quality Assessment: Supplemental Oxygen, DVT Prophylaxis. No: Skin Breakdown General: Alert, Oriented, Cooperative, No Acute Distress Lungs: Decreased Breath Sounds, Rhonchi, Wheezing Cardiovascular: Regular Rate, Regular Rhythm GI/Abdominal Exam: Normal Bowel Sounds, Soft, Non-Tender Peripheral Pulses: 2+: Radial (L), Radial (R) Skin: Warm, Dry, Intact Neurological: No New Focal Deficit - Problem List & Annotations (1) CAP (community acquired pneumonia) SNOMED Code(s): 405787944 Code(s): J18.9 - PNEUMONIA, UNSPECIFIED ORGANISM Status: Acute Priority: High Current Visit: Yes Qualifiers: Laterality: right Lung location: middle lobe of lung Qualified Code(s): J18.1 - Lobar pneumonia, unspecified organism (2) Dehydration SNOMED Code(s): 86739942 Code(s): E86.0 - DEHYDRATION Status: Acute Priority: Medium Current Visit: Yes (3) Shortness of breath SNOMED Code(s): 213953698 Code(s): R06.02 - SHORTNESS OF BREATH Status: Acute Priority: High Current Visit: Yes (4) Hypoxia SNOMED Code(s): 685926163 Code(s): R09.02 - HYPOXEMIA Status: Resolved Priority: High Current Visit: Yes (5) Weakness SNOMED Code(s): 84834567 Code(s): R53.1 - WEAKNESS Status: Resolved Priority: Medium Current Visit: Yes (6) COPD exacerbation SNOMED Code(s): 511045080 Code(s): J44.1 - CHRONIC OBSTRUCTIVE PULMONARY DISEASE W (ACUTE) EXACERBATION Status: Acute Priority: High Current Visit: Yes Onset Date : ~01/14/19 - Problem List Review Problem List Initiated/Reviewed/Updated: Yes - My Orders Last 24 Hours: My Active Orders 01/15/19 08:19 RESPIRATORY PANEL Stat 01/16/19 07:30 methylPREDNISolone Sod Succ [Solu-MEDROL] 40 mg IVPUSH Q12H 01/17/19 05:11 BASIC METABOLIC PANEL,BMP [CHEM] Routine CBC WITH AUTO DIFF [HEME] Routine - Assessment Assessment:: COPD exacerbation RLL Pneumonia Dehydration Hypoxia Weakness - Plan Plan:: 43 yo male patient with no past medical history is admitted to the acute care floor at [facility] for pneumonia, SOB, hypoxia, and dehydration. Continue with abx therapy. Lab in AM. CT of chest with contrast questionable RUL nodules. IVF. Resp care consult. Admit acute. Anticipate stay of 3-4 days. Full code. Will transfer to higher level of care shoulder the need arise. Continue same cares today. Will decrease Solumedrol to 40 mg BID. Needs sleep study and full PFTs after discharge. NOTE: Patient seen and examined by me as an provider.
[2019-01-16] MEDS: Nicotine 21 MG/24 Hr Patch TRDERM SCH (07:41)
[2019-01-16] MEDS: cefTRIAXone 1 GM Vial IVPUSH SCH (15:32)
[2019-01-16] MEDS: Azithromycin 500 MG in Sodium Chloride 0.9% 250 ML IV SCH (15:39)
[2019-01-16] MEDS: methylPREDNISolone Sodium Succinate 40 MG/1 ML SDV IVPUSH SCH (19:44)
[2019-01-16] MEDS: Enoxaparin 40 MG/0.4 ML Syringe SUBCUT SCH (19:45)
[2019-01-17] MEDS: Albuterol/Ipratropium 3.0-0.5 MG/3 ML Neb Soln NEB SCH ×5 (03:53→18:35)
[2019-01-17] MEDS: Nicotine 21 MG/24 Hr Patch TRDERM SCH (07:22)
[2019-01-17] MEDS: methylPREDNISolone Sodium Succinate 40 MG/1 ML SDV IVPUSH SCH ×2 (07:24→19:39)
[2019-01-17 08:14] LABS: CHLORIDE,CL 106 mmol/L (98-107); SODIUM,NA 144 mmol/L (136-145)
[2019-01-17 08:20] LABS: ANION GAP 9.5 mmol/L (10-20)
[2019-01-17] MEDS: Sodium Chloride 0.9% 1,000 ML IV SCH (09:27)
[2019-01-17] MEDS: cefTRIAXone 1 GM Vial IVPUSH SCH (15:53)
[2019-01-17] MEDS: Azithromycin 500 MG in Sodium Chloride 0.9% 250 ML IV SCH (15:53)
--- NOTE | 2019-01-17 19:37 | PCM.PN ---
- General Info Date of Service: 01/17/19 Admission Dx/Problem (Free Text): Admission Diagnosis/Problem Admission Diagnosis/Problem Pneumonia Hypoxia Dehydration SOB Subjective Update: Patient states he is feeling much better today. He is requesting to go home tomorrow. Has a dry nonproductive cough. Energy has improved. No chest pain. No focal neurological complaints. He is tolerating diet ok. No issues with BM's or urination. Functional Status: Reports: Pain Controlled, Tolerating Diet, Ambulating, Urinating Pain Score: 0 - Review of Systems General: Denies: Fever, Weakness, Chills Pulmonary: Denies: Shortness of Breath, Cough Cardiovascular: Denies: Chest Pain, Palpitations Gastrointestinal: Denies: Abdominal Pain, Nausea, Vomiting Skin: Reports: No Symptoms Neurological: Reports: No Symptoms - Patient Data Vitals - Most Recent: Last Vital Signs Temp 37.1 C 01/17/19 16:48 Pulse 94 01/17/19 16:48 Resp 18 01/17/19 16:48 BP 143/81 H 01/17/19 16:48 Pulse Ox 93 L 01/17/19 16:48 Weight - Most Recent: 151.046 kg I&O - Last 24 Hours: Intake & Output 01/17/19 01/17/19 01/17/19 06:59 14:59 22:59 Intake Total 2934 780 1190 Balance 2934 780 1190 Lab Results Last 24 Hours: Laboratory Results - last 24 hr 01/17/19 01/17/19 Range/Units 07:15 07:15 WBC 13.4 H (4.0-10.0) x10^3/uL RBC 5.02 (4.5-6.0) x10^6/uL Hgb 16.9 (14.0-18.0) g/dL Hct 55.6 H (40.0-52.0) % MCV 110.8 H (78.0-93.0) fL MCH 33.7 H (26.0-32.0) pg MCHC 30.4 L (32.0-36.0) g/dL RDW Coeff of Jamie 15.7 H (10.0-15.0) % Plt Count 146 (130-400) x10^3/uL Neut % (Auto) 80.9 H (50.0-80.0) % Lymph % (Auto) 7.8 L (25.0-50.0) % [place] % (Auto) 10.5 (2.0-11.0) % Eos % (Auto) 0.7 (0.0-4.0) % Baso % (Auto) 0.1 L (0.2-1.2) % Sodium 144 (136-145) mmol/L Potassium 4.5 (3.5-5.1) mmol/L Chloride 106 (98-107) mmol/L Carbon Dioxide 33 H (21-32) mmol/L Anion Gap 9.5 L (10-20) mmol/L BUN 15 (7-18) mg/dL Creatinine 0.9 (0.70-1.30) mg/dL Est Cr Clr Drug Dosing 117.36 mL/min Estimated GFR (MDRD) > 60 Glucose 98 (74-106) mg/dL Calcium 8.5 (8.5-10.1) mg/dL Roberto Results Last 24 Hours: Microbiology 01/14/19 16:40 Aerobic Blood Culture - Preliminary Blood - Venous - Lab Draw NO GROWTH AFTER 3 DAYS Anaerobic Blood Culture - Preliminary NO GROWTH AFTER 3 DAYS 01/14/19 16:32 Aerobic Blood Culture - Preliminary Blood - Venous NO GROWTH AFTER 3 DAYS Anaerobic Blood Culture - Preliminary NO GROWTH AFTER 3 DAYS Med Orders - Current: Current Medications Acetaminophen (Tylenol) 650 mg PO Q4H PRN PRN Reason: Pain (Mild 1-3)/fever Albuterol/Ipratropium (Duoneb 3.0-0.5 Mg/3 Ml) 3 ml NEB Q4HRRT [facility] Last Admin: 01/17/19 18:35 Dose: 3 ml Ceftriaxone Sodium (Rocephin) 2 gm IVPUSH Q24H [facility] Last Admin: 01/17/19 15:53 Dose: 2 gm Docusate Sodium (Colace) 100 mg PO BID PRN PRN Reason: Constipation Enoxaparin Sodium (Lovenox) 40 mg SUBCUT DAILY@1999 [facility] Last Admin: 01/16/19 19:45 Dose: 40 mg Azithromycin 500 mg/ Sodium (Chloride) 250 mls @ 250 mls/hr IV Q24H [facility] Last Admin: 01/17/19 15:53 Dose: 250 mls/hr Methylprednisolone Sodium Succinate (Solu-Medrol) 40 mg IVPUSH Q12H [facility] Last Admin: 01/17/19 07:24 Dose: 40 mg Nicotine (Habitrol) 21 mg TRDERM DAILY [facility] Last Admin: 01/17/19 07:22 Dose: 21 mg Ondansetron HCl (Zofran Odt) 4 mg PO Q6H PRN PRN Reason: nausea, able to take PO Polyethylene Glycol (Miralax) 17 gm PO DAILY PRN PRN Reason: Constipation Sodium Chloride (Saline Flush) 10 ml FLUSH ASDIRECTED PRN PRN Reason: Keep Vein Open Last Admin: 01/16/19 04:10 Dose: 10 ml Sodium Chloride (Saline Flush) 10 ml FLUSH ASDIRECTED PRN PRN Reason: Keep Vein Open Last Admin: 01/15/19 03:52 Dose: 10 ml Zolpidem Tartrate (Ambien) 10 mg PO BEDTIME PRN PRN Reason: Sleep Discontinued Medications Albuterol/Ipratropium (Duoneb 3.0-0.5 Mg/3 Ml) 3 ml NEB Q4H [facility] Last Admin: 01/14/19 17:01 Dose: Not Given Enoxaparin Sodium (Lovenox) 40 mg SUBCUT DAILY@1800 [place] Sodium Chloride (Normal Saline) 1,000 mls @ 999 mls/hr IV ONETIME ONE Stop: 01/14/19 17:11 Last Admin: 01/14/19 16:54 Dose: 999 mls/hr Sodium Chloride (Normal Saline) 1,000 mls @ 125 mls/hr IV ASDIRECTED [facility] Last Admin: 01/17/19 09:27 Dose: 125 mls/hr Iopamidol (Isovue-300 (61%)) 100 ml IVPUSH ONETIME ONE Stop: 01/14/19 17:10 Last Admin: 01/14/19 18:20 Dose: 100 ml Methylprednisolone Sodium Succinate (Solu-Medrol) 125 mg IVPUSH Q12H [facility] Last Admin: 01/16/19 04:10 Dose: 125 mg Methylprednisolone Sodium Succinate (Solu-Medrol) 40 mg IVPUSH Q12H [facility] Last Admin: 01/16/19 07:52 Dose: 40 mg - Exam Quality Assessment: Supplemental Oxygen, DVT Prophylaxis. No: Skin Breakdown General: Alert, Oriented, Cooperative, No Acute Distress Lungs: Normal Respiratory Effort, Crackles (bilateral bases) Cardiovascular: Regular Rate, Regular Rhythm GI/Abdominal Exam: Normal Bowel Sounds, Soft, Non-Tender Peripheral Pulses: 2+: Radial (L), Radial (R) Skin: Warm, Dry, Intact Neurological: No New Focal Deficit - Problem List & Annotations (1) CAP (community acquired pneumonia) SNOMED Code(s): 522416281 Code(s): J18.9 - PNEUMONIA, UNSPECIFIED ORGANISM Status: Acute Priority: High Current Visit: Yes Qualifiers: Laterality: right Lung location: middle lobe of lung Qualified Code(s): J18.1 - Lobar pneumonia, unspecified organism (2) Dehydration SNOMED Code(s): 38816076 Code(s): E86.0 - DEHYDRATION Status: Acute Priority: Medium Current Visit: Yes (3) Shortness of breath SNOMED Code(s): 304855394 Code(s): R06.02 - SHORTNESS OF BREATH Status: Acute Priority: High Current Visit: Yes (4) Hypoxia SNOMED Code(s): 116721185 Code(s): R09.02 - HYPOXEMIA Status: Resolved Priority: High Current Visit: Yes (5) Weakness SNOMED Code(s): 02511979 Code(s): R53.1 - WEAKNESS Status: Resolved Priority: Medium Current Visit: Yes (6) COPD exacerbation SNOMED Code(s): 082347079 Code(s): J44.1 - CHRONIC OBSTRUCTIVE PULMONARY DISEASE W (ACUTE) EXACERBATION Status: Acute Priority: High Current Visit: Yes Onset Date : ~01/14/19 - Problem List Review Problem List Initiated/Reviewed/Updated: Yes - My Orders Last 24 Hours: My Active Orders 01/16/19 20:00 methylPREDNISolone Sod Succ [Solu-MEDROL] 40 mg IVPUSH Q12H 01/18/19 05:11 BASIC METABOLIC PANEL,BMP [CHEM] Routine CBC WITH AUTO DIFF [HEME] Routine - Assessment Assessment:: COPD exacerbation RLL Pneumonia Dehydration Hypoxia Weakness - Plan Plan:: 43 yo male patient with no past medical history is admitted to the acute care floor at [facility] for pneumonia, SOB, hypoxia, and dehydration. Will stop IVF. Continue with abx therapy. Lungs much better today. Concern for discharge is if the patient can maintain saturations off oxygen. Will reassess tomorrow. Will need Pulmonary and Sleep medicine work up after discharge. Recheck labs in AM. NOTE: Patient seen and examined by me as an [facility] provider.
[2019-01-17] MEDS: Enoxaparin 40 MG/0.4 ML Syringe SUBCUT SCH (19:39)
[2019-01-18] MEDS: Albuterol/Ipratropium 3.0-0.5 MG/3 ML Neb Soln NEB SCH ×4 (07:17→10:38)
[2019-01-18] MEDS: Nicotine 21 MG/24 Hr Patch TRDERM SCH (07:39)
[2019-01-18 07:58] LABS: CHLORIDE,CL 103 mmol/L (98-107); SODIUM,NA 139 mmol/L (136-145)
[2019-01-18 08:03] LABS: ANION GAP 5.3 mmol/L (10-20)
[2019-01-18] MEDS: methylPREDNISolone Sodium Succinate 40 MG/1 ML SDV IVPUSH SCH (08:37)
[2019-01-18] MEDS ORDERED: predniSONE 20 MG Tab PO ONE (09:22)
--- NOTE | 2019-01-18 12:08 | PCM.DCSUM1 ---
Discharge Summary - Hospital Course HPI Initial Comments: Patient presents to the [facility] last Saturday with complaints of SOB, dry cough, fevers, and chills. Appetite has been poor. Patient states symptoms have been occurring for the past day or so. He has a long stand history of heavy cigarette smoking. Patient states he has been using OTC cough syrup but nothing else. No eye or ear symptoms. No sinus pressure/pain. He is trying to stay hydrated but knows he needs to drink more. Fevers have been 103 at home. No chest pain. No abdominal complaints. Urine output has dropped off some. No focal neurological problems. Patient had an oxygen saturation of 70% on room air in the clinic. Patient was slightly tachycardic in clinic. Diagnosis: Stroke: No Modified Jerome Scale: No Symptoms at All Modified Xiomara Scale Score: 0 - Discharge Data Discharge Date: 01/18/19 Discharge Disposition: Home, Self-Care 01 Condition: Good - Discharge Diagnosis/Problem(s) (1) CAP (community acquired pneumonia) SNOMED Code(s): 341569313 ICD Code: J18.9 - PNEUMONIA, UNSPECIFIED ORGANISM Status: Resolved Priority: High Current Visit: Yes Qualifiers: Laterality: right Lung location: middle lobe of lung Qualified Code(s): J18.1 - Lobar pneumonia, unspecified organism (2) Dehydration SNOMED Code(s): 78445043 ICD Code: E86.0 - DEHYDRATION Status: Resolved Priority: Medium Current Visit: Yes (3) Shortness of breath SNOMED Code(s): 086799341 ICD Code: R06.02 - SHORTNESS OF BREATH Status: Chronic Priority: High Current Visit: Yes (4) Hypoxia SNOMED Code(s): 627337246 ICD Code: R09.02 - HYPOXEMIA Status: Chronic Priority: High Current Visit: Yes (5) Weakness SNOMED Code(s): 29898437 ICD Code: R53.1 - WEAKNESS Status: Resolved Priority: Medium Current Visit: Yes (6) COPD exacerbation SNOMED Code(s): 818767061 ICD Code: J44.1 - CHRONIC OBSTRUCTIVE PULMONARY DISEASE W (ACUTE) EXACERBATION Status: Acute Priority: High Current Visit: Yes Onset Date : ~01/14/19 - Patient Summary/Data Operative Procedure(s) Performed: None Consults: Consultations 01/14/19 16:08 Consult to Case Management/Orthopedic Assistant [CONS] Routine 01/14/19 16:20 Respiratory Care Assess and Treatment [CONS] Routine Labs Pending at D/C: None Recommended Follow-up Testing/Procedures: Clinic tomorrow Sleep study PFT's Pulmonary Rehab Home O2 Planned Operative Procedure(s) after DC: None Hospital Course: Patient remained stable during acute stay. He continues to be O2 dependent at time of discharge. No problems with urination or BM's. Appetite was excellent. No chest pain. Having chronic SOB with activity. No abdominal pain. Patient was able to be weaned down on steroids. Labs remained stable. - Patient Instructions Diet: Heart Healthy Diet, Low Sodium Activity: Rest and Relax Today Driving: Do Not Drive Showering/Bathing: May Shower Other/Special Instructions: Worsening SOB, Oxygen needs, Productive cough; chest pain; question with oxygen needs or any other concerns - Discharge Plan *PRESCRIPTION DRUG MONITORING PROGRAM REVIEWED*: Not Applicable *COPY OF PRESCRIPTION DRUG MONITORING REPORT IN PATIENT MARY: Not Applicable Prescriptions/Med Rec: predniSONE [Deltasone] 40 mg PO DAILY 5 Days #5 tablet Home Medications: Home Meds predniSONE [Deltasone] 40 mg PO DAILY 5 Days #5 tablet 01/18/19 [Rx] Oxygen Therapy Mode: Nasal Cannula Oxygen Flow Rate (L/min): 5 Maintain SPO2% less than: 92 Maintain SpO2% greater than: 88 Patient Handouts: Chronic Obstructive Pulmonary Disease, Home Oxygen Use, Adult Referrals: Brian Mcfadden NP [Primary Care Provider] - - Discharge Summary/Plan Comment DC Time >30 min.: Yes Discharge Summary/Plan Comment: Patient will be discharged home today. I did request the patient stay another day, but he declined. Will send a [facility] home oxygen concentrator home with patient. Needs to keep sats >88%. RT to set up patient today for home O2 use. Will continue patient on 40 mg Prednisone daily for the next 5 days. Patient will see me in clinic today. Patient will be set up for a Sleep Study, Pulmonary Rehab, and COPD medications. Pharmacies are closed today, so unable to get started on intermediate designer medications. - General Info Date of Service: 01/18/19 Admission Dx/Problem (Free Text: Admission Diagnosis/Problem Admission Diagnosis/Problem Pneumonia Hypoxia Dehydration SOB Subjective Update: Patient states he is feeling much better today. He is requesting to go home tomorrow. Has a dry nonproductive cough. Energy has improved. No chest pain. No focal neurological complaints. He is tolerating diet ok. No issues with BM's or urination. Functional Status: Reports: Pain Controlled, Tolerating Diet, Ambulating, Urinating. Denies: New Symptoms Numeric/FACES Score: 0 - Review of Systems General: Denies: Fever, Chills Pulmonary: Reports: Shortness of Breath, Cough. Denies: Sputum Cardiovascular: Denies: Chest Pain, Palpitations Gastrointestinal: Denies: Abdominal Pain, Nausea, Vomiting Skin: Reports: No Symptoms Neurological: Reports: No Symptoms - Patient Data Vitals - Most Recent: Last Vital Signs Temp 36.9 C 01/18/19 09:25 Pulse 112 H 01/18/19 09:25 Resp 22 H 01/18/19 09:25 BP 140/82 01/18/19 09:25 Pulse Ox 90 L 01/18/19 09:25 Weight - Most Recent: 151.046 kg I&O - Last 24 hours: Intake & Output 01/17/19 01/18/19 01/18/19 22:59 06:59 14:59 Intake Total 1190 1500 240 Balance 1190 1500 240 Lab Results - Last 24 hrs: Laboratory Results - last 24 hr 01/18/19 01/18/19 Range/Units 07:35 07:35 WBC 10.1 H (4.0-10.0) x10^3/uL RBC 5.13 (4.5-6.0) x10^6/uL Hgb 17.1 (14.0-18.0) g/dL Hct 56.2 H (40.0-52.0) % MCV 109.6 H (78.0-93.0) fL MCH 33.3 H (26.0-32.0) pg MCHC 30.4 L (32.0-36.0) g/dL RDW Coeff of Jamie 15.4 H (10.0-15.0) % Plt Count 125 L (130-400) x10^3/uL Neut % (Auto) 70.0 (50.0-80.0) % Lymph % (Auto) 17.0 L (25.0-50.0) % [place]key % (Auto) 12.8 H (2.0-11.0) % Eos % (Auto) 0.1 (0.0-4.0) % Baso % (Auto) 0.1 L (0.2-1.2) % Sodium 139 (136-145) mmol/L Potassium 4.3 (3.5-5.1) mmol/L Chloride 103 (98-107) mmol/L Carbon Dioxide 35 H (21-32) mmol/L Anion Gap 5.3 L (10-20) mmol/L BUN 14 (7-18) mg/dL Creatinine 0.9 (0.70-1.30) mg/dL Est Cr Clr Drug Dosing 117.36 mL/min Estimated GFR (MDRD) > 60 Glucose 86 (74-106) mg/dL Calcium 8.5 (8.5-10.1) mg/dL [place]OILAN Results - Last 24 hrs: Microbiology 01/14/19 16:40 Aerobic Blood Culture - Preliminary Blood - Venous - Lab Draw NO GROWTH AFTER 3 DAYS Anaerobic Blood Culture - Preliminary NO GROWTH AFTER 3 DAYS 01/14/19 16:32 Aerobic Blood Culture - Preliminary Blood - Venous NO GROWTH AFTER 3 DAYS Anaerobic Blood Culture - Preliminary NO GROWTH AFTER 3 DAYS Med Orders - Current: Current Medications Acetaminophen (Tylenol) 650 mg PO Q4H PRN PRN Reason: Pain (Mild 1-3)/fever Albuterol/Ipratropium (Duoneb 3.0-0.5 Mg/3 Ml) 3 ml NEB Q4HRRT [facility] Last Admin: 01/18/19 10:38 Dose: 3 ml Ceftriaxone Sodium (Rocephin) 2 gm IVPUSH Q24H [facility] Last Admin: 01/17/19 15:53 Dose: 2 gm Docusate Sodium (Colace) 100 mg PO BID PRN PRN Reason: Constipation Enoxaparin Sodium (Lovenox) 40 mg SUBCUT DAILY@1999 [facility] Last Admin: 01/17/19 19:39 Dose: 40 mg Azithromycin 500 mg/ Sodium (Chloride) 250 mls @ 250 mls/hr IV Q24H [facility] Last Admin: 01/17/19 15:53 Dose: 250 mls/hr Methylprednisolone Sodium Succinate (Solu-Medrol) 40 mg IVPUSH Q12H [facility] Last Admin: 01/18/19 08:37 Dose: Not Given Nicotine (Habitrol) 21 mg TRDERM DAILY [facility] Last Admin: 01/18/19 07:39 Dose: 21 mg Ondansetron HCl (Zofran Odt) 4 mg PO Q6H PRN PRN Reason: nausea, able to take PO Polyethylene Glycol (Miralax) 17 gm PO DAILY PRN PRN Reason: Constipation Sodium Chloride (Saline Flush) 10 ml FLUSH ASDIRECTED PRN PRN Reason: Keep Vein Open Last Admin: 01/16/19 04:10 Dose: 10 ml Sodium Chloride (Saline Flush) 10 ml FLUSH ASDIRECTED PRN PRN Reason: Keep Vein Open Last Admin: 01/15/19 03:52 Dose: 10 ml Zolpidem Tartrate (Ambien) 10 mg PO BEDTIME PRN PRN Reason: Sleep Discontinued Medications Albuterol/Ipratropium (Duoneb 3.0-0.5 Mg/3 Ml) 3 ml NEB Q4H [facility] Last Admin: 01/14/19 17:01 Dose: Not Given Enoxaparin Sodium (Lovenox) 40 mg SUBCUT DAILY@1800 [place] Sodium Chloride (Normal Saline) 1,000 mls @ 999 mls/hr IV ONETIME ONE Stop: 01/14/19 17:11 Last Admin: 01/14/19 16:54 Dose: 999 mls/hr Sodium Chloride (Normal Saline) 1,000 mls @ 125 mls/hr IV ASDIRECTED [facility] Last Admin: 01/17/19 09:27 Dose: 125 mls/hr Iopamidol (Isovue-300 (61%)) 100 ml IVPUSH ONETIME ONE Stop: 01/14/19 17:10 Last Admin: 01/14/19 18:20 Dose: 100 ml Methylprednisolone Sodium Succinate (Solu-Medrol) 125 mg IVPUSH Q12H [facility] Last Admin: 01/16/19 04:10 Dose: 125 mg Methylprednisolone Sodium Succinate (Solu-Medrol) 40 mg IVPUSH Q12H [facility] Last Admin: 01/16/19 07:52 Dose: 40 mg Prednisone (Prednisone) 20 mg PO ONETIME ONE Stop: 01/18/19 09:23 Last Admin: 01/18/19 09:34 Dose: 20 mg - Exam Quality Assessment: Reports: Supplemental Oxygen General: Reports: Alert, Oriented, Cooperative, No Acute Distress Lungs: Reports: Normal Respiratory Effort, Decreased Breath Sounds Cardiovascular: Reports: Regular Rhythm, Tachycardia GI/Abdominal Exam: Normal Bowel Sounds, Soft, Non-Tender Skin: Reports: Warm, Dry, Intact Neurological: Reports: No New Focal Deficit *Q Meaningful Use (DIS) - VTE *Q VTE Criteria *Q: No risk for VTE at time of discharge
[2019-01-18] MEDS ORDERED: Take Home: predniSONE 20 MG, 2 Tab Pack PO ONE (12:12)
[2019-01-18] MEDS ORDERED: Take Home: predniSONE 20 MG, 2 Tab Pack ONE (12:30)
== END 2019-01-18 13:45 | disposition home or self-care (01) | DRG 139 ==
LOC: VM.MS 16:08
PROVIDERS: ADMIT Nurse Practitioner Family; ATTEND Nurse Practitioner Family
DX: J18.1 Lobar pneumonia, unspecified organism (principal); E86.0 Dehydration; R09.02 Hypoxemia; J44.0 Chronic obstructive pulmonary disease with (acute) lower respiratory infection; J44.1 Chronic obstructive pulmonary disease with (acute) exacerbation; F17.210 Nicotine dependence, cigarettes, uncomplicated; H91.92 Unspecified hearing loss, left ear; Z79.52 Long term (current) use of systemic steroids
CPT/HCPCS: 36415; 36600; 71046; 71260; 80048; 80053; 81001; 82803; 83605; 83735; 84100; 84145; 85008; 85025; 86140; 87040; 87804; 87804-59; 87899; 93005; 94640; 94660; 94760; A9270-GY; J0456; J0696; J1650; J2920; J2930; J7030; J7050; J7620-GY; Q9967